=== PATIENT | male | born 1955 | race Caucasian/White ===

== ENCOUNTER 2016-10-03 14:37 | Inpatient (IN) | payer OTHER ==
[~2016-10-03] VITALS: Ht 170.2 cm; Wt 65.4 kg
--- NOTE | 2016-10-03 14:44 | NUR ---
PT PRESENTS TO ER C/O OF SUICIDAL THOUGHTS. PT STATES HE WANTS TO JUMP IN FRONT OF A TRAIN AND KILL HIMSELF. PT STATES HE IS VERY TIRED AND JUST OVER LIVING.
--- NOTE | 2016-10-03 15:30 | NUR ---
JOSE A'S CONTACT NO. [phone] (H), (CELL)
--- NOTE | 2016-10-03 15:39 | NUR ---
LABS DRAWN AND SENT BY THIS MST. BLUE,SST,LAV
[2016-10-03 15:47] LABS: ABSOLUTE BASOPHIL COUNT 0 /CUMM (0.0-0.2); ABSOLUTE EOSINOPHIL COUNT 0 /CUMM (0.0-0.7); ABSOLUTE GRANULOCYTE CT 5.8 /CUMM (1.4-6.5); ABSOLUTE LYMPH COUNT 1.1 /CUMM (1.2-3.4); ABSOLUTE MONOCYTE COUNT 0.6 /CUMM (0.10-0.60); BASOPHIL % 0.5 % (0.0-2.0); EOSINOPHIL % 0.1 % (0-5); GRANULOCYTE % 77.3 % (42.2-75.2); HEMATOCRIT 49.6 % (42-52); MEAN CORPUSCULAR HGB 32.2 PG (27.0-31.0); MEAN CORPUSCULAR HGB CONC 33.2 G/DL (33.0-37.0); MEAN PLATELET VOLUME 7.1 FL (7.4-10.4); PLATELET COUNT 300 /CUMM (130-400); RBC DISTRIBUTION WIDTH 14.7 % (11.5-14.5); RED BLOOD CELL CT 5.11 /CUMM (4.70-6.10); WHITE BLOOD CELL COUNT 7.5 /CUMM (4.8-10.8)
--- NOTE | 2016-10-03 16:00 | NUR ---
PT MOVED TO ROOM 15. CALM AND COOPERATIVE. CONTINUES REPORTING SUICIDAL WITH NO KNOWN PLAN AT THIS TIME. DENIES HOMICIDAL IDEATION. ADMITS TO DRINKING UNKNOWN AMOUNT OF ETOH AT AROUND NOON TODAY. FAMILY AT BED AT THIS TIME.
--- NOTE | 2016-10-03 16:50 | NUR ---
PT SOUND ASLEEP AT THIS TIME WITH REGULAR BREATHING PATTERNS. SITTERS AT THE DOOR.
--- NOTE | 2016-10-03 17:15 | ED PSYCHIATRIC COMPLAINT ---
History of Present Illness General Chief Complaint: ETOH/Drug Related Complaint Stated Complaint: +SI, ALCOHOL DETOX Source: patient, old records Exam Limitations: no limitations Vital Signs & Intake/Output Vital Signs & Intake/Output Vital Signs Date Time Temp Pulse Resp B/P B/P Pulse O2 O2 Flow FiO2 Mean Ox Delivery Rate 10/04 806 96.8 59 18 113/70 10/04 08 96.8 59 18 113/70 99 Room Air 10/04 0606 97.4 53 18 134/71 97 Room Air 10/04 2015 97.2 82 17 115/80 94 Room Air 10/03 1608 97.6 89 21 112/82 97 Room Air 10/03 1443 97.2 86 20 110/78 98 Room Air Allergies Coded Allergies: NO KNOWN ALLERGIES (11/04/11) Triage Note: PT PRESENTS TO ER C/O OF SUICIDAL THOUGHTS. PT STATES HE WANTS TO JUMP IN FRONT OF A TRAIN AND KILL HIMSELF. PT STATES HE IS VERY TIRED AND JUST OVER LIVING. Triage Nurses Notes Reviewed? yes Onset: Abrupt HPI: 61-year-old male that has a history of drinking alcohol that has currently been drinking alcohol heavily comes in for further evaluation of suicidal comments made to his daughter. According to the patient he told his daughter yesterday that he wants to "jump in front of a train". He has chronic pain issues from his back injuries. Denies any drug use but he is on 100 mg of oxycodone daily which she ran out of. Patient lives with his but She is currently in [place] traveling. Denies any other associated symptoms. The called the emergency room reporting that the patient Should not be discharged. He is unsafe to be at home. He is manipulative.he is verbally abusive has tried hurting himself in the past. He has a drug addiction as well as alcohol addiction. [place] He was seen in [place] yesterday and was discharged. The 's name is Yisel in her phone number is [phone]. She wants to be contacted for further information. (LEXI LAURENT,FIFI) Reconcile Medications Diazepam (Valium) 10 MG TABLET 1 TAB PO BID ANXIETY (Reported) Oxycodone HCl 20 MG TABLET 1 TAB PO Q4 HRS NEEDED PRN PAIN (Reported) (ELOINA GARCIA,EVETTE) Past History Travel History Traveled to [place] past 21 day No Medical History Any Pertinent Medical History? see below for history Musculoskeletal: BROKEN BACK Psychiatric: depression Surgical History Surgical History: non-contributory Psychosocial History What is your primary language [place] Citizen Tobacco Use: Current Daily Use Daily Tobacco Use Amount/Type: => 5 Cigarettes daily Family History Hx Contributory? No (FIFI MARIE) Review of Systems Review of Systems Constitutional: Reports: no symptoms. EENTM: Reports: no symptoms. Respiratory: Reports: no symptoms. Cardiovascular: Reports: no symptoms. GI: Reports: no symptoms. Genitourinary: Reports: no symptoms. Musculoskeletal: Reports: no symptoms. Skin: Reports: no symptoms. Neurological/Psychological: Reports: see HPI. Hematologic/Endocrine: Reports: no symptoms. Immunologic/Allergic: Reports: no symptoms. All Other Systems: Reviewed and Negative (FIFI MARIE) Physical Exam Physical Exam General Appearance: well developed/nourished, mild distress Head: atraumatic Eyes: Bilateral: normal appearance. Ears, Nose, Throat: normal ENT inspection, hearing grossly normal Neck: normal inspection Respiratory: no respiratory distress Cardiovascular: regular rate/rhythm Extremities: normal range of motion Neurological/Psychiatric: awake, alert, calm Appearance/Memory/Insight: appropriate appearance Behavoir/Eye Contact/Speech: cooperative Thoughts/Hallucinations: no apparent hallucination Skin: intact, normal color, warm/dry SAD PERSONS Done? unobtained due to conditi (FIFI MARIE) Progress Differential Diagnosis: dementia, drug intoxication, drug overdose, drug withdrawal, electrolyte abnormality, encephalitis, hypoglycemia, hypothyroidism, IC hem/mass/tumor, meningitis, Depression,anxiety, bipolar, Plan of Care: Orders Procedure Date/time Status Regular Diet 10/04 L Active Regular Diet 10/04 B Complete Lab Add-on Test 10/04 1049 Active Pathway - chart 10/04 1047 Active Patient Data - inpatient psych 10/04 1045 Active Admit to inpatient psych 10/04 1045 Active Continuous Observation Monitor 10/04 0742 Active Vital Signs 10/04 UNK Active Nursing Misc 10/04 UNK Active CIWA 10/04 UNK Active Alternative Nursing Therapy 10/04 UNK Active Activity/Ambulation 10/04 UNK Active Continuous Observation Monitor 10/03 1952 Active Intake & Output 10/03 1857 Active ED CRISIS PSYCH CONSULT 10/03 1711 Active TSH REFLEX 10/03 1536 Complete URINE DRUGS OF ABUSE 10/03 1459 Complete ETHANOL 10/03 1459 Complete COMPREHENSIVE METABOLIC PANEL 10/03 1459 Complete CBC WITHOUT DIFFERENTIAL 10/03 1459 Complete Current Medications Sig/Hector Start time Last Medication Dose Stop Time Status Admin Lorazepam 0.5 MG ONCE 10/09 0000 AC (Ativan) 10/09 0001 Lorazepam 0.5 MG Q6H 10/08 0000 AC (Ativan) 10/08 1801 Lorazepam 0.5 MG ONCE ONE 10/07 1800 AC (Ativan) 10/07 1801 Lorazepam 1 MG Q6H 10/07 0000 AC (Ativan) 10/07 1201 Lorazepam 1.5 MG Q12H 10/06 0600 AC (Ativan) 10/06 1801 Lorazepam 1 MG Q12H 10/06 0000 AC (Ativan) 10/06 1201 Lorazepam 1.5 MG Q6 10/05 0600 AC (Ativan) 10/05 1801 Lorazepam 2 MG Q6 10/04 1200 AC 10/04 (Ativan) 10/05 0001 1132 Acetaminophen 650 MG Q6P PRN 10/04 1100 AC (Tylenol) Al Hydroxide/Mg 30 ML Q4-6 PRN PRN 10/04 1100 AC Hydroxide (Maalox Plus) Gabapentin 300 MG Q6P PRN 10/04 1100 AC (Neurontin) Lorazepam 2 MG Q2P PRN 10/04 1100 AC (Ativan) Lorazepam 1 MG Q2P PRN 10/04 1100 AC (Ativan) Magnesium Hydroxide 30 ML AT BEDTIME PRN 10/04 1100 AC (Milk Of Magnesia) Trazodone HCl 50 MG AT BEDTIME NEED.. 10/04 1100 AC (Desyrel) Folic Acid 1 MG DAILY 10/04 1047 AC (Folic Acid) Multivitamins 1 TAB DAILY 10/04 1047 AC (Theragran Vitamins) Thiamine HCl 100 MG DAILY 10/04 1047 AC (Vitamin B1) Hydromorphone HCl 4 MG Q6P PRN 10/03 2045 AC 10/04 (Dilaudid) 0630 Laboratory Tests 10/03/16 1536: Anion Gap 12, Estimated GFR > 60, BUN/Creatinine Ratio 17.5, Glucose 91, Calcium 9.6, Total Bilirubin 0.9, AST 28, ALT 32, Alkaline Phosphatase 63, Total Protein 7.1, Albumin 4.0, Globulin 3.1, Albumin/Globulin Ratio 1.3, TSH &T3 &Free T4 Intrp 0.332, CBC w Diff NO MAN DIFF REQ, RBC 5.11, MCV 97.0 H, MCH 32.2 H, RDW 14.7 H, MPV 7.1 L, Gran % 77.3 H, Lymphocytes % 14.4 L, Monocytes % 7.7, Eosinophils % 0.1, Basophils % 0.5, Absolute Granulocytes 5.8, Absolute Lymphocytes 1.1 L, Absolute Monocytes 0.6, Absolute Eosinophils 0, Absolute Basophils 0, PUBS MCHC 33.2, Serum Alcohol 179.0 10/03/16 1511: Urine Opiates Screen 874.00, Methadone Screen < 40, Barbiturate Screen < 60, Ur Phencyclidine Scrn < 6.00, Amphetamines Screen < 100, U Benzodiazepines Scrn > 800 H, Urine Cocaine Screen < 50, Urine Cannabis Screen < 5.00 7:15 AM PATIENT SIGNED OUT TO ME BY DR HENDERSON. PENDING CRISIS EVALUATION. (EVETTE DUVALL MD) Hand-Off Endorsed To: SERA HENDERSON MD Endorsed Time: 1930 Pending: other (crisis) (FIFI MARIE) Hand-Off Endorsed To: EVETTE DUVALL MD Endorsed Time: 07 Pending: consult (RE-EVAL, ADMISSION) Comments: Patient has been seen and evaluated by the qc lab technician. PEC is being signed. Anticipate admission on a bed is available (SERA HENDERSON MD) Departure Departure Disposition: STILL A PATIENT Condition: Stable Referrals: ILDA GARCIA,SHAHIDA Daily (PCP/Family) Departure Forms: Customer Survey General Discharge Information (FIFI MARIE) Departure Clinical Impression Primary Impression: Suicidal ideation Secondary Impressions: ETOH abuse PA/ASSISTANT PROFESSOR OF SPANISH Co-Sign Statement Statement: ED Attending supervision documentation- [X] I saw and evaluated the patient. I have also reviewed all the pertinent lab results and diagnostic results. I agree with the findings and the plan of care as documented in the PA's/ASSISTANT PROFESSOR OF SPANISH's documentation. [X] I have reviewed the ED Record and agree with the PA's/ASSISTANT PROFESSOR OF SPANISH's documentation. [] Additions or exceptions (if any) to the PAs/ASSISTANT PROFESSOR OF SPANISH's note and plan are summarized below: [] (SANTIAGO GARCIA,SERA Daily) Departure Time of Disposition: 1310 Psych Admission Note Psychiatric Admission: I have seen and evaluated KYLEE VIERA. I have also reviewed all the pertinent lab results and diagnostic results. KYLEE VIERA will be admitted to our inpatient Psychiatric unit for treatment and care. (ELOINA GARCIA,EVETTE)
--- NOTE | 2016-10-03 17:37 | ED PSY CRISIS COLLATERAL NOTE ---
Collateral Note Collateral Note Family/Inform/Ashley Contacts: CELESTE spoke to the patients aunt Miriam Cruz ([phone], ), for collateral information. Miriam states that she was at the ED with someone else and recognized him today. She states prior to today she saw him last Friday and he was not doing well. She states that he has struggled with alcohol abuse for about 15-20 years. She has known him to attempt suicide 2x in the past. She reports that while she was visiting him today, he did tell her that he wanted to kill himself. Miriam states that he is (Yisel) and has an adult daughter ( Tessy). Miriam reports that he does have chronic pain, from back issues, for which he has had surgery. She is concerned about his safety and believes that an inpatient admission would be helpful at this time. CELESTE left a message for his Yisel Gutierrez ([phone], ) and will await a call back.
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
--- NOTE | 2016-10-03 18:56 | NUR ---
PT SOUND ASLEEP WITH REGULAR BRATHING PATTERNS.
--- NOTE | 2016-10-03 19:07 | NUR ---
KYLEE VIERA Nurse Note by: BREANA MARIA I agree with the IRRIGATION FOREMAN findings/evaluation of this patient's condition. Entered by: BREANA MARIA Date: 10/03/16 Time: 1906
--- NOTE | 2016-10-03 19:50 | NUR ---
PT SLEEPING. CRISIS COUNSELOR SPEAKING TO PATIENT'S AT THIS TIME
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
--- NOTE | 2016-10-03 21:38 | NUR ---
PT MEDICATED WITH 4 MG DILAUDID PO FOR CHRONIC PAIN. PT AWARE NEXT DOSE WILL BE AVAILABLE AFTER [address] HENDERSON, PT TO BE ADMITTED TO [facility] TOMORROW AFTER A BED BECOMES AVAILABLE.
--- NOTE | 2016-10-04 01:19 | NUR ---
PT AWAKE AND AMBULATORY TO THE BATHROOM. WATER PROVIDED. BACK TO BED. REMAINS CALM AND COOPERATIVE, SITTER REMAINS IN ATTENDANCE
--- NOTE | 2016-10-04 02:42 | NUR ---
COMFORTABLY SLEEPING. REGULAR BREATHING PATTERNS. SITTER AT THE DOORWAY.
--- NOTE | 2016-10-04 02:55 | NUR ---
KYLEE VIERA Nurse Note by: BREANA MARIA I agree with the SENIOR DB2 SYSTEMS PROGRAMMER findings/evaluation of this patient's condition. Entered by: BREANA MARIA Date: 10/04/16 Time: 025
--- NOTE | 2016-10-04 04:21 | NUR ---
PT CONTINUES TO SLEEP. SITTER REMAINS IN ATTENDANCE
--- NOTE | 2016-10-04 06:16 | NUR ---
AWOKE PATIENT FROM SOUND SLEEP TO OBTAIN VS, PATIENT REPORTING 8/10 BACK PAIN, CHRONIC IN NATURE. PATIENT NOTED W/ PRN DILAUDID ORDER IN EMAR. WILL OBTAIN FOR PATIENT.
--- NOTE | 2016-10-04 06:30 | NUR ---
PATIENT MEDICATED W/ DILAUDID PO PRN (Q6H) PER EMAR. TOLERARED WELL. AFTER ADMINISTRATION, PATIENT STATES "YOU KNOW, I USUALLY TAKE 20MG OF PERCOCET SO THIS DILAUDID ISN'T EVEN TOUCHING ME. IT'S LIKE PUTTING ON A BANDAID."
[2016-10-04 08:07] VITALS: BP 113/70
--- NOTE | 2016-10-04 08:08 | NUR ---
PT LAYING ON STRETCHER, CIWA 0 AT THIS TIME C/O CHRONIC BACK PAIN 01/07. STATES HE NORMALLY TAKES 20MG PO PERCOCET Q4H FOR BACK PAIN, STATES "THE DILAUDID ISNT DOING ANYTHING FOR ME" ALEXIS REMAINS PRESTENT. AWARE
--- NOTE | 2016-10-04 10:04 | NUR ---
PT SLEEPING AT THIS TIME, REG RESP RATE NOTED. SITTER REMAINS PRESENT. WILL CTM
[2016-10-04] MEDS ORDERED: VALIUM10 M1 PO (11:18)
[2016-10-04] MEDS ORDERED: PERCOCET 10-321 EACH PO (11:18)
--- NOTE | 2016-10-04 11:33 | NUR ---
ASSUMED CARE OF THIS PT FROM [facility]. PT MEDICATED WITH ATIVAN 2MG PO PER EMAR. PT REFUSED MULTIVITAMIN, FOLIC ACID AND VITAMIN B1. PT CALM AND COOEPRATIVE. SITTER AT DOOR.
[2016-10-04] MEDS ORDERED: OXYCODONE HCL20 M2 PO (11:34)
--- NOTE | 2016-10-04 13:10 | NUR ---
PT REPORTS HAVING BACK PAIN. PT STATES HE SPOKE WITH TRACY AND THAT HE TAKES PERCOCET 20MG Q4H FOR PAIN AND VALIUM 10MG BID. SITTER AT DOOR.
--- NOTE | 2016-10-04 13:21 | NUR ---
PT MEDICATED WITH DILAUDID 4MG PO FOR BACK PAIN. PT MOVED TO [facility] UNTIL TRANSFER TO [facility] DUE TO ANOTHER PT NEEDING ROOM 15.
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
--- NOTE | 2016-10-04 15:01 | NUR ---
PT'S TRANSPORT DELAYED DUE TO SECURITY ISSUE ON [facility].
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
--- NOTE | 2016-10-04 15:45 | NUR ---
MAKENNA FROM CPS SAID IT IS OK TO SEND PT DOWN AT THIS TIME.
[2016-10-04 16:44] VITALS: BP 111/74
[2016-10-04 16:45] VITALS: BP 111/74
[2016-10-04 20:03] VITALS: BP 121/67
[2016-10-04 20:13] VITALS: BP 121/67
--- NOTE | 2016-10-04 20:14 | NUR ---
PT ADMITTED TO CPS FOR DEPRESSION WITH SI AND ALCOHOL DEPENDENCE REQUIRING DETOX. PT DENIED SI/THOUGHTS OF SELF HARM DURING INTERVIEW. HE ADMITTED TO PAST THOUGHTS AND VERBALIZATIONS OF SI. HOWEVER, HOWEVER, HE DENIED ANY PAST SUICIDE ATTEMPTS DESPITE AUNT'S STATEMENT THAT SHE WAS AWARE OF TWO PAST ATTEMPTS. PT REPORTED HE HAS BECOME INCREASINGLY DEPRESSED AND ANXIOUS SINCE CHRONIC BACK PAIN, POST FAILED FUSION HAS AFFECTED HIS LOF INCLUDING ABILITY TO WORK AND PLAY GOLF WHICH IS HIS PASSION. VSS. NO S&S OF ALCOHOL WITHDRAWAL NOTED/REPORTED. LOW BACK PAIN "7" ON SCALE OF 1-10. DEPRESSION "5" AND ANXIETY "7" ON SCALE OF 1-10 WITH 10 BEING WORST. PT DENIED AH AND VH. REPORTED BM TODAY BUT "HAS BEEN LIKE WATER FOR A WEEK CAUSE I HAVEN'T EATEN ANYTHING. PT SAID HE HAS NOT EATEN "SINCE ." PT REFUSED DINNER ON UNIT. NUTRITION CONSULT ORDERED.
--- NOTE | 2016-10-04 22:25 | History & Physical ---
General Information and HPI MD Statement: I have seen and personally examined KYLEE VIERA and documented this H&P. The patient is a 61 year old M who presented with a patient stated chief complaint of [medical evaluation ]. Source of Information: patient Exam Limitations: no limitations History of Present Illness: Past medical history significant for chronic back pain S/P spinal fusion in 2012 , still pain persist, follows up with Dr. Pink for pain management. He recently followed up for right lower extremity pain and right-sided back pain for which she underwent MRI, there were some changes and he received epidural injection. He also has nerve stimulator in the back. He takes oxycodone and Valium at home for pain. Patient is tearful throughout the interview, secondary to back pain. Other than chronic back pain 14 point ROS negative. Allergies/Medications Allergies: Coded Allergies: NO KNOWN ALLERGIES (11/04/11) Home Med list Diazepam (Valium) 10 MG TABLET 1 TAB PO BID ANXIETY (Reported) Oxycodone HCl 20 MG TABLET 1 TAB PO Q4 HRS NEEDED PRN PAIN (Reported) Compliance With Home Meds: GOOD Past History Travel History Traveled to [place] past 21 day No Medical History Neurological: SCIATICA EENT: NONE Cardiovascular: NONE Respiratory: NONE Gastrointestinal: REPORTS DIARRHEA X 7 DAYS Hepatic: NONE Renal: NONE Musculoskeletal: chronic back pain Psychiatric: anxiety, depression Endocrine: NONE Blood Disorders: NONE Cancer(s): NONE 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 Home Smoking Status: Current Everyday Smoker ETOH Use: heavy use Illicit Drug Use: denies illicit drug use Functional Ability ADLs Independent: dressing, eating, toileting, bathing. 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 EENTM: Reports: no symptoms. Cardiovascular: Reports: no symptoms. Respiratory: Reports: no symptoms. GI: Reports: no symptoms. Genitourinary: Reports: no symptoms. Musculoskeletal: Reports: back pain. Skin: Reports: no symptoms. Hematologic/Endocrine: Reports: no symptoms. All Other Systems: Reviewed and Negative Exam & Diagnostic Data Last 24 Hrs of Vital Signs/I&O Vital Signs Date Time Temp Pulse Resp B/P B/P Pulse O2 O2 Flow FiO2 Mean Ox Delivery Rate 10/04 2012 97.7 68 16 121/67 10/04 2002 97.7 68 121/67 10/04 1645 98.0 72 111/74 10/04 1644 98.0 72 111/74 10/04 1429 98.2 82 16 122/65 95 Room Air 10/04 0807 96.8 59 18 113/70 10/04 0806 96.8 59 18 113/70 99 Room Air 10/04 0606 97.4 53 18 134/71 97 Room Air Physical Exam General Appearance Alert, Oriented X3, Cooperative Skin No Rashes, No Breakdown HEENT Atraumatic, PERRLA, EOMI, Mucous Membr. moist/pink Neck Supple, No JVD, No thryomegaly, +2 Carotid Pulse wo Bruit Lymphatic Cervical nl Cardiovascular Regular Rate, Normal S1, Normal S2, No Murmurs Lungs Clear to Auscultation, Normal Air Movement Abdomen Normal Bowel Sounds, Soft, No Tenderness, No Hepatospenomegaly, No Masses Neurological Exam Findings: Normal Gait, Normal Speech, Strength at 5/5 X4 Ext, Normal Tone, Sensation Intact, Cranial Nerves 3-12 NL, Reflexes 2+ Cranial Nerves II through XII: Cranial nerves III-XII intact Extremities No Clubbing, No Cyanosis, No Edema, Normal Pulses Vascular Normal Pulses, Pulses Symmetrical Last 24 Hrs of Labs/Brady: Laboratory Tests 10/03 10/03 1536 1511 Chemistry Sodium (137 - 145 mmol/L) 140 Potassium (3.5 - 5.1 mmol/L) 3.9 Chloride (98 - 107 mmol/L) 104 Carbon Dioxide (22 - 30 mmol/L) 23 Anion Gap (5 - 16) 12 BUN (9 - 20 mg/dL) 14 Creatinine (0.7 - 1.2 mg/dL) 0.8 Estimated GFR (>60 ml/min) > 60 BUN/Creatinine Ratio (7 - 25 %) 17.5 Glucose (65 - 99 mg/dL) 91 Calcium (8.4 - 10.2 mg/dL) 9.6 Total Bilirubin (0.2 - 1.3 mg/dL) 0.9 AST (17 - 59 U/L) 28 ALT (21 - 72 U/L) 32 Alkaline Phosphatase (< 127 U/L) 63 Total Protein (6.3 - 8.2 g/dL) 7.1 Albumin (3.5 - 5.0 g/dL) 4.0 Globulin (1.9 - 4.2 gm/dL) 3.1 Albumin/Globulin Ratio (1.1 - 2.2 %) 1.3 TSH &T3 &Free T4 Intrp (0.27 - 4.20 uIU/mL) 0.332 Hematology CBC w Diff NO MAN DIFF REQ WBC (4.8 - 10.8 /CUMM) 7.5 RBC (4.70 - 6.10 /CUMM) 5.11 Hgb (14.0 - 18.0 G/DL) 16.4 Hct (42 - 52 %) 49.6 MCV (80.0 - 94.0 FL) 97.0 H MCH (27.0 - 31.0 PG) 32.2 H RDW (11.5 - 14.5 %) 14.7 H Plt Count (130 - 400 /CUMM) 300 MPV (7.4 - 10.4 FL) 7.1 L Gran % (42.2 - 75.2 %) 77.3 H Lymphocytes % (20.5 - 51.1 %) 14.4 L Monocytes % (1.7 - 9.3 %) 7.7 Eosinophils % (0 - 5 %) 0.1 Basophils % (0.0 - 2.0 %) 0.5 Absolute Granulocytes (1.4 - 6.5 /CUMM) 5.8 Absolute Lymphocytes (1.2 - 3.4 /CUMM) 1.1 L Absolute Monocytes (0.10 - 0.60 /CUMM) 0.6 Absolute Eosinophils (0.0 - 0.7 /CUMM) 0 Absolute Basophils (0.0 - 0.2 /CUMM) 0 PUBS MCHC (33.0 - 37.0 G/DL) 33.2 Toxicology Urine Opiates Screen (>2000 NG/ML) 874.00 Methadone Screen (>300 NG/ML) < 40 Barbiturate Screen (>200 NG/ML) < 60 Ur Phencyclidine Scrn (>25 NG/ML) < 6.00 Amphetamines Screen (>1000 NG/ML) < 100 U Benzodiazepines Scrn (>200 NG/ML) > 800 H Urine Cocaine Screen (>300 NG/ML) < 50 Urine Cannabis Screen (>50 NG/ML) < 5.00 Serum Alcohol (<10 MG/DL) 179.0 Assessment/Plan Assessment: # Alcoholism: agree with psychiatrist # Depression SI and overdose: Agree with psychiatrist # Chronic back pain: Need to reconfirm his pain medications from pain clinic, patient wants to restart his home medication As Ranked By This Provider Problem List: 1. ETOH abuse 2. Suicidal ideation 3. Back pain Miscellaneous Miscellaneous Documentation Attending Case Discussed With: LUCAS GARCIA,JUANPABLO Primary Care Physician: SHAHIDA GONSALES MD Patient sees these Specialists Dr. Florez Level of Patient Care: MIRANDA Simon MD Review Statement Attending Statement Attending MD Statement: examined this patient, reviewed images
[2016-10-05] VITALS (13 sets, daily range): BP systolic 100–131; BP diastolic 62–79
--- NOTE | 2016-10-05 04:54 | Admission Certification ---
Admission Certification Certification Statement - As attending physician, I certify that at the time of - admission, based on clinical presentation, severity of - symptoms, need for further diagnostic testing and - therapeutic interventions, and risk of adverse outcomes - without in-hospital treatment, in my clinical assessment, - this patient requires an acute hospital stay for a minimum - of two nights or longer. I have also considered psychsocial - factors such as support system, advanced age, financial - issues, cognitive issues, and failed out-patient treatments, - past re-admission history, safety of patient, and lack of - compliance as applicable. Specific rationale supporting this admission is: suicidal ideation
--- NOTE | 2016-10-05 06:52 | NUR ---
PATIENT SLEPT 1/2 OF MORE OF NIGHT; IS ORIENTED; VITAL SIGNS WNL, NO DETOX SYMPTOMS; ATIVAN TAPER BEING ADMINISTERED WITHOUT DIFFICULTY, STILL RUMINATING ON PAIN MEDICATION ISSUE.
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
--- NOTE | 2016-10-05 14:29 | NUR ---
SPENDING MOST OF THE DAY IN BED. COMES OUT WHEN HIS PAIN MEDS ARE DUE. MOOD IS STABLE DENIED THOUGHTS OF SELF HARM WHEN ASKED.
--- NOTE | 2016-10-05 18:31 | NUR ---
PT HAS BEEN WITHDRAWN AND CONSTRICTED ON THE UNIT. HE COMMUNICATES WITH STAFF AND PEERS IN SMALL INCREMENTS BUT REPORTS FEELING ANXIOUS AT TIMES AND WILL RETREAT TO HIS ROOM. PT HAS REFUSED TO EAT MEALS AND OFTEN MAKES COMMENTS SUCH "I HAVENT EATEN SINCE LAST FRIDAY, I CAN KEEP GOING, YOU WATCH". PT ALSO DISPLAYS AN IRRITABLE AFFECT IN REGARDS TO THE RELATIONSHIP WITH HIS . PT HAS DENIED ANY THOUGHTS OF SI WHEN ASKED BY STAFF.
--- NOTE | 2016-10-05 22:23 | NUR ---
PT REPORTED PASSIVE SI AT 2100. THIS MHW TRIED TO ASSESS THE ROOT OF THE EMOTION, TO PROVIDE SUPPORT AND UNDERSTANDING BUT HE DID NOT WANT TO SPEAK FURTHER. PT STATED DURING VITALS "HOW LOW DOES MY BP NEED TO GET UNTIL I CROAK... I WOULD LOVE IT IF I JUST NEVER WOKE UP". SUPPLY REQUIREMENTS OFFICER WAS INFORMED.
[2016-10-06] VITALS (10 sets, daily range): BP systolic 93–132; BP diastolic 60–82
--- NOTE | 2016-10-06 05:57 | NUR ---
PT ON THE PERIPHERY ON EVENINGS. PT IN BED EARLY. PT SLEPT. PATIENT'S CALLED FROM [facility]. SHE STATED THAT THE PATIENT IS SUPPOSED TO GO TO THE [facility] HOME FOR A PERIOD AFTER DISCHARGE.
--- NOTE | 2016-10-06 11:17 | NUR ---
PT HAS SPENT MOST OF THE SHIFT IN BED, COMING OUT FOR VITALS, MEALS AND MEDS. PT REPORTED SI THOUGHTS AT 0800 VITALS BUT JUST PASSIVE THOGUHTS, NO PLAN. PT MOOD IS STABLE WITH A FLAT AFFECT. PT IS NOT ATTENDING GROUPS. PT IS COMPLIANT AND COOPERATIVE WITH STAFF WHEN ASKED.
--- NOTE | 2016-10-06 17:24 | DISCHARGE SUMMARY REPORT-PSYCH ---
Hospital Course Course Allergies: Coded Allergies: NO KNOWN ALLERGIES (11/04/11) Discharge HBIPS - Tobacco Use Treatment Offered - EtOH/Drug Use D/O Treatment Offered Metabolic Screening - Screen if on a Neuroleptic Medication - Metabolic screening should include: - Blood Pressure, BMI, Glucose or Hgb A1c, & a - Lipid profile from within the past 365 days.
--- NOTE | 2016-10-06 17:28 | CP SOUTH PROGRESS NOTE PSYCH ---
Psych (Inpt) Progress Note Progress Note Progress Note: SUBJECTIVE: Pt requested nicotine replacement today (declinied on admission), ordered. Pt tearful during interview, stated "I keep asking my [] uncle to take me, but they wont do it" (pointing to ceiling)...I made a mess of everything." Pt spoke minimally with who called x2, upset that she is spending money traveling now. Pt with passive SI, denied HI/AVH/SIB. Feels mild withdrawal, states the ativan helps. Worked with pt to have basal/bolus pain coverage throughout 24 h for better control of breakthough pain, discussed r/b/se, pt in agreement with plan. Pt sates he hasnt been able to eat/sleep well. Received senior sales operations analyst for TENS unit, stated that is helping somewhat. OBJECTIVE: Per nursing, pt went to bed early, slept throught night. Adherent with meds and staff instructions, in behavioral control, on periphery of milieu. Per RN, pt said want him to do to [facility] after dc. MEDS: Current Medications Sig/Hector Start time Last Medication Dose Stop Time Status Admin Acetaminophen 650 MG Q6P PRN 10/04 1100 AC (Tylenol) Al Hydroxide/Mg 30 ML Q4-6 PRN PRN 10/04 1100 AC Hydroxide (Maalox Plus) Folic Acid 1 MG DAILY 10/04 1047 AC 10/06 (Folic Acid) 0930 Gabapentin 300 MG BID 10/05 2200 AC 10/06 (Neurontin) 0930 Lorazepam 0.5 MG ONCE 10/09 0000 AC (Ativan) 10/09 0001 Lorazepam 0.5 MG Q6H 10/08 0000 AC (Ativan) 10/08 1801 Lorazepam 0.5 MG ONCE ONE 10/07 1800 AC (Ativan) 10/07 1801 Lorazepam 1 MG Q6H 10/07 0000 AC (Ativan) 10/07 1201 Lorazepam 1.5 MG Q12H 10/06 0600 AC 10/06 (Ativan) 10/06 1801 0604 Lorazepam 2 MG Q2P PRN 10/04 1100 AC (Ativan) Lorazepam 1 MG Q2P PRN 10/04 1100 AC (Ativan) Magnesium Hydroxide 30 ML AT BEDTIME PRN 10/04 1100 AC (Milk Of Magnesia) Multivitamins 1 TAB DAILY 10/04 1047 AC 10/06 (Theragran Vitamins) 0930 Nicotine 21 MG DAILY 10/06 1726 AC (Nicoderm) Oxycodone HCl 20 MG 1500 10/07 1500 AC (Roxicodone) Oxycodone HCl 20 MG 0600 10/07 0600 AC (Roxicodone) Oxycodone HCl 20 MG Q12H 10/06 2100 AC (OxyCONTIN) Thiamine HCl 100 MG DAILY 10/04 1047 AC 10/06 (Vitamin B1) 0930 Trazodone HCl 50 MG AT BEDTIME NEED.. 10/04 1100 AC 10/05 (Desyrel) 2157 VITALS: Vital Signs Date Time Temp Pulse Resp B/P B/P Pulse O2 O2 Flow FiO2 Mean Ox Delivery Rate 10/06 1530 83 128/66 10/06 1513 83 128/66 10/06 1225 89 93/60 10/06 1218 89 93/60 10/06 0833 78 121/81 10/06 0831 96.6 78 121/81 10/06 0615 51 18 124/68 10/05 205 98.4 88 122/70 10/06 2055 98.4 88 122/70 10/05 1801 98.6 83 121/65 LABS: no labs in last 24 h MSE: GEN: Alert, tearful, slow-moving, stooped, fair eye contact, disheveled, in moderate distress. SPEECH: moderate rate, low volume, fluent MOTOR: no tics, tremor, stereotypy or abnormal movements, no asteriksis MOOD: "Monica really messed everything up...its hopeless!" AFFECT: sad, tearful, congruent, constircted, mildly labile (crying, irritable) TP: logical, linear, goal-directed TC: denies SI/HI/AVH,SIB, no apparent delusions, paranoia, grandiosity, obsessions, ruminations COG: impaired memory, attention, concentration (needed to repeat questions, medications frequently) J/I: fair/fair A&P: 61 yo MWM with unspecified depressive d/o, alcohol use disorder, severe, and possible opiate use disorder in chronic pain treatment, presenting voluntarily with daughter for SI and EtOH detox. At this time, pt with continued passive SI , withouth HI/AVH/SIB, adequately undergoing EtOH detox, adherent with meds. Today, pt continued to have breakthough pain after switching to long-acting opiate regimen +gabapentin and recharging his TENS; will add short acting to bridge. While pt is on high doses of opiates, he is opiate tolerant and current doses (80 mg oxy/day) is less than home regimen (100mg or more) by >20%. Pt continued to be quite depressed. Treatment Plan: -maintain safety, q15 min checks, fall risk -vs q4h, CIWA, ativan prn EtOH withdrawal -adding short acting opiate for breakthough pain -pain mgmt with TENS (senior sales operations analyst at nursing station) -reg diet, encourage hydration -cont plan, dispo per primary team
--- NOTE | 2016-10-06 17:54 | NUR ---
WHILE DISPENING MEDICATIONS TO PATIENT i ASKED IF HE HAD EATEN ANYTHING TODAY AND HE SAID NO . WENT ON TO SAY WHAT WOULD IT MATTER IF HE STOPPED EATING. AFTER SOME MORE DISCUSSION REGARDING HIS CIRCUMSTANCES HE BEGAN TO CRY. iN THE END HE AGREED TO LET US TRY TO COME UP WITH A PLAN TO HELP HIM WHILE KEEPING HIM SAFE. hE PROMISED TO EAT TOMMOROW AND I TOLD HIM I WOULD HOLD HIM TO HIS PROMISE.
--- NOTE | 2016-10-06 18:33 | NUR ---
PT HAS BEEN IN HIS BED FOR THE MAJORITY OF THE SHIFT. HE HAS REPORTED PASSIVE THOUGHTS OF SI, SAYING THAT HE WOULD BE HAPPY IF HE NEVER WOKE UP. HE HAS DENIED ANY PLAN TO ACT ON THOUGHTS WHILE ON THE UNIT. HE REMAINS TO HAVE A FLAT, CONSTRICTED AFFECT. PT REPORTS THAT HE HAS BEEN IRRITATED WITH HIS , AND THAT SHE IS IN [place] "SPENDING ALL THE MONEY". PT HAS BEEN COMPLIANT WITH UNIT RULES.
--- NOTE | 2016-10-06 23:24 | NUR ---
PT MADE PASSIVE SUICIDAL STATEMENT WHEN ASKED ABOUT HIS HYGIENE. "IHAVEN'T EATEN OR SHOWERED IN 8 DAYS", TRYING TO KILL MYSELF. MAYBE TOMORROW HE STATED. COMPLIANT WITH MEDS. NO CIWA SCORING NOTED.
[2016-10-07] VITALS (8 sets, daily range): BP systolic 103–134; BP diastolic 69–83
--- NOTE | 2016-10-07 04:55 | NUR ---
SLEPT WELL. BEGINNING OF THE NIGHT, NO CIWA SCORING AT THAT TIME. AT 0235, SCORED ON CIWA WHEN AWAKE WITH IN 100. MEDICATED ORDERED ATIVAN 1MG PO WIITH GOOD EFFECT.
--- NOTE | 2016-10-07 13:12 | NUR ---
PT IS COMPLIANT AND COOPERATIVE. MOOD IS STABLE WITH A CONSTRICTED AFFECT. PT DENIES SI AT THIS TIME, C/O CHRONIC BACK PAIN. NO S/S OF DETOX NOTED OR REPORTED, NO SCORING ON CIWA. PT HAS BEEN ISOLATIVE AND WITHDRAWN, SLEEPING ON AND OFF. PT HAS SOME INTERACTION WIHT PEERS AND STAFF WHEN OOB. PT HAS ATTENDED ONE GROUP. VITALS ARE STABLE, APPETITE IS GOOD.
--- NOTE | 2016-10-07 13:27 | CP SOUTH PROGRESS NOTE PSYCH ---
Psych (Inpt) Progress Note Progress Note Include the following elements, when applicable: Involvement in the active treatment of the patient with behavioral observations of the patient and the patient's response to the treatment. Review of the ongoing treatment process in the context of the treatment plan. Indication of how multi-disciplinary staff members are carrying out the treatment plan. Plans for future interventions and recommendations for revision of the treatment plan. Liaison with other physicians/providers. Progress Note: I discussed this patient's progress to date, current mental status, treatment process in the context of the treatment plan, and discharge planning with staff/ team in the daily morning inpatient team meeting. I also met with the patient myself in individual session. Current Medications Sig/Hector Start time Last Medication Dose Route Stop Time Status Admin Acetaminophen 650 MG Q6P PRN 10/04 1100 AC PO Al Hydroxide/Mg 30 ML Q4-6 PRN PRN 10/04 1100 AC Hydroxide PO Folic Acid 1 MG DAILY 10/04 1047 AC 10/07 PO 0837 Gabapentin 300 MG BID 10/05 2200 AC 10/07 PO 0837 Lorazepam 0.5 MG ONCE 10/09 0000 AC PO 10/09 0001 Lorazepam 0.5 MG Q6H 10/08 0000 AC PO 10/08 1801 Lorazepam 0.5 MG ONCE ONE 10/07 1800 AC PO 10/07 1801 Lorazepam 1 MG Q6H 10/07 0000 DC 10/07 PO 10/07 1201 1214 Lorazepam 1.5 MG Q12H 10/06 0600 DC 10/06 PO 10/06 1801 1751 Lorazepam 2 MG Q2P PRN 10/04 1100 AC PO Lorazepam 1 MG Q2P PRN 10/04 1100 AC 10/07 PO 0344 Magnesium Hydroxide 30 ML AT BEDTIME PRN 10/04 1100 AC PO Multivitamins 1 TAB DAILY 10/04 1047 AC 10/07 PO 0837 Nicotine 21 MG DAILY 10/06 1726 AC 10/07 TOP 0837 Oxycodone HCl 20 MG 1500 10/07 1500 DC PO Oxycodone HCl 20 MG 1500 10/07 1500 AC PO Oxycodone HCl 20 MG 0600 10/07 0600 DC PO Oxycodone HCl 20 MG 0600 10/07 0600 AC 10/07 PO 0607 Oxycodone HCl 20 MG Q12H 10/06 2100 AC 10/07 PO 0836 Oxycodone HCl 10 MG ONCE ONE 10/06 1745 DC 10/06 PO 10/06 1746 1751 Oxycodone HCl 20 MG Q12 10/05 1256 DC 10/06 PO 0929 Thiamine HCl 100 MG DAILY 10/04 1047 AC 10/07 PO 0837 Trazodone HCl 50 MG AT BEDTIME NEED.. 10/04 1100 AC 10/05 PO 2157 Vital Signs Date Time Temp Pulse Resp B/P B/P Pulse O2 O2 Flow FiO2 Mean Ox Delivery Rate 10/07 1247 83 134/71 10/07 1244 83 134/71 10/07 0816 97.2 92 105/82 10/07 0814 97.2 92 105/82 10/06 2053 98.5 91 100/81 10/06 2031 98.5 91 100/81 10/06 1803 59 132/82 10/06 1530 83 128/66 10/06 1513 83 128/66 A: Chart, progress notes, labs, vital signs and medication list reviewed. Vital signs within normal limits. No scoring on CIWA x last 24 hours. No new lab results today. Patient is a 61-year-old , employed, male with a history of unspecified depression, alcohol use disorder, possible opiate use disorder who is in chronic pain management with Dr. Florez. He presented to [facility] ED on 10/03/16, brought in by his daughter, with thoughts of "jumping in front of a train" and in need of alcohol detox secondary to the nonrenewal of his pain medications. Patient reports a hx of 2 prior CPS hospitalizations in 2006 and multiple alcohol detoxes including [facility] in 2011, [facility] and some involvement. Patient with 2 prior suicide attempts many years ago but did not wish to discuss the details of these. Not presently in outpatient psychiatric tx. Per CT BEEF BREAKER: Oxycodone HCL 20mg #140/25 days; last filled on 09/09/16 Diazepam 10mg #60/30 days; last filled on 09/09/16 Patient denied being on other psychotropic medications. Patient presents today alert, oriented x 3. Makes fair eye contact. Minimally guarded. Affect sad, constricted, tearful at times. Depressed mood. Speech soft- spoken. Concentration fair. He reports current stressors involving finances, his , and chronic pain issues. States he no longer finds pleasure in activities he once liked, including golf. He offers no complaints. Rates anxiety a 4/10 (10 being the worst). Rates depression an 8/10 (10 being the worst). Reports 5/10 pain. Describes feeling hopeless and helpless due to current stressors. States he doesn't feel his marriage will work out. Reports passive SI, elly plans or intent. Denies HI, AH and VH. No evidence of paranoia or delusional/illogical thought content. Reports motivation to stop drinking. States he had been drinking up to a couple pints daily prior to admission. Reports tolerating ativan taper well overall. Counseling provided on resuming AA/contact with sponsor. Patient seems agreeable. Reports sleeping poorly d/t noisy roommate. Reports his appetite is returning, he ate breakfast this morning. Thought process linear. Cognition grossly intact. Education provided on Zoloft, reviewed the risk/benefit/se profiles with patient. Per 2006 CPS discharge summary, patient's mood and presentation improved on this medication. Patient was agreeable to retrial. Informed him that Zoloft will start at 50mg daily for depression and anxiety. He verbalized understanding of med education. P: -monitor for safety, mood, SI. -continue CIWA protocol Q4H w/awake for etoh w/d. Continue Ativan taper as ordered. -continue current pain management w/ TENS unit as prescribed. -start Zoloft 50mg daily for anxiety/depression. -obtain collateral from family. -refer to a dual IOP once symptoms stabilize.
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
--- NOTE | 2016-10-07 18:15 | NUR ---
PT IS CALM, COOPERATIVE WITH STAFF AND PEERS, AND COMPLAINT WITH UNIT RULES. BOTH IN AND OUT OF MILIEU, INTERACTING TO AN EXTENT WITH OTHERS, SLIGHTLY WITHDRAWN. MOOD IS STABLE, AFFECT APPEARS EUTHYMIC TO FULL RANGE, COMMUNICATION IS ORGANIZED AND APPEARS NORMAL IN ALL RESPECTS, AND APPETITE IS NORMAL. PT DENIES SI AT THIS TIME.
[2016-10-08] VITALS (7 sets, daily range): BP systolic 100–126; BP diastolic 53–74
--- NOTE | 2016-10-08 07:26 | NUR ---
PT ON PERIPHERY ON EVENINGS. PT IN BED EARLY. PT SLEPT. PT PAIN FOCUSED IN AM. PT ENCOURAGED TO SHOWER.
--- NOTE | 2016-10-08 08:31 | IP INCIDENTAL NOTE PSYCH ---
Incidental Note Notation: CELESTE obtained to speak with pain specialist. I spoke to Dr. Bryant Florez, at 8: 20AM today. Informed Dr. Florez of circumstances surrounding patient's current inpatient hospitalization, ie., SI, alcohol detox, having run out of narcotic meds, etc. Dr. Florez informed me that this is not the first time the patient has run out of opiates prior to medication renewal. States he has made attempts to further manage patient's pain by raising dosage of narcotic medication, however patient continued to c/o no relief and used up prescriptions early. Dr. Florez is requesting that patient start tapering off of opiate pain medication while inpatient. Dr. Florez is agreeable to seeing the patient back in his office post- discharge to complete opiate taper and address pain management with alternative pain medications. Informed Dr. Florez that [facility] will be in contact with his office to arrange a f/u appointment prior to patient discharging, if he is not discharged directly to an inpatient residential rehab.
--- NOTE | 2016-10-08 10:28 | CP SOUTH PROGRESS NOTE PSYCH ---
Psych (Inpt) Progress Note Progress Note Include the following elements, when applicable: Involvement in the active treatment of the patient with behavioral observations of the patient and the patient's response to the treatment. Review of the ongoing treatment process in the context of the treatment plan. Indication of how multi-disciplinary staff members are carrying out the treatment plan. Plans for future interventions and recommendations for revision of the treatment plan. Liaison with other physicians/providers. Progress Note: I discussed this patient's progress to date, current mental status, treatment process in the context of the treatment plan, and discharge planning with staff/ team in the daily morning inpatient team meeting. I also met with the patient myself in individual session. Current Medications Sig/Hector Start time Last Medication Dose Route Stop Time Status Admin Acetaminophen 650 MG Q6P PRN 10/04 1100 AC PO Al Hydroxide/Mg 30 ML Q4-6 PRN PRN 10/04 1100 AC Hydroxide PO Folic Acid 1 MG DAILY 10/04 1047 AC 10/08 PO 0913 Gabapentin 300 MG BID 10/05 2200 AC 10/08 PO 0913 Lorazepam 0.5 MG ONCE 10/09 0000 AC PO 10/09 0001 Lorazepam 0.5 MG Q6H 10/08 0000 AC 10/08 PO 10/08 1801 0631 Lorazepam 0.5 MG ONCE ONE 10/07 1800 DC 10/07 PO 10/07 1801 1826 Lorazepam 1 MG Q6H 10/07 0000 DC 10/07 PO 10/07 1201 1214 Lorazepam 2 MG Q2P PRN 10/04 1100 AC PO Lorazepam 1 MG Q2P PRN 10/04 1100 AC 10/07 PO 0344 Magnesium Hydroxide 30 ML AT BEDTIME PRN 10/04 1100 AC PO Multivitamins 1 TAB DAILY 10/04 1047 AC 10/08 PO 0913 Nicotine 21 MG DAILY 10/06 1726 AC 10/08 TOP 0913 Oxycodone HCl 20 MG 10/09 2100 UNVr PO Oxycodone HCl 10 MG 0910/09 0900 UNVr PO Oxycodone HCl 10 MG 2100 10/08 2100 UNVr PO 10/08 2101 Oxycodone HCl 20 MG 1500 10/07 1500 DC PO Oxycodone HCl 20 MG 1500 / 1500 AC 10/07 PO 1425 Oxycodone HCl 20 MG 0600 10/07 0600 AC 10/08 PO 0631 Oxycodone HCl 20 MG Q12H 10/06 2100 DC 10/08 PO 0915 Sertraline HCl 50 MG 0800 10/07 1400 AC 10/08 PO 912 Thiamine HCl 100 MG DAILY 10/04 1047 AC 10/08 PO 912 Trazodone HCl 50 MG .STK-MED ONE 10/07 2126 DC PO 10/08 2127 Trazodone HCl 50 MG AT BEDTIME NEED.. 10/04 1100 AC 10/07 PO 2125 Vital Signs Date Time Temp Pulse Resp B/P B/P Pulse O2 O2 Flow FiO2 Mean Ox Delivery Rate 10/09 827 97.8 62 116/61 10/08 806 97.8 62 116/61 10/07 1957 97.1 71 103/69 10/07 1950 97.1 71 103/69 10/07 1549 87 129/83 10/07 1538 87 129/83 10/07 1247 83 134/71 10/07 1244 83 134/71 A: Chart, progress notes, labs, vital signs and medication list reviewed. Vital signs within normal limits. No scoring on CIWA x last 24 hours. No new lab results today. Patient seen at 10:15AM. He reports sleeping poorly last night due to his roommate snoring loudly. States his roommate is always present in room, and that he is hardly able to nap during the day. Reports feeling tired. Reports PRN Trazodone and ear plugs have provided minimal relief. Affect constricted with occasional range. Describes mood as "down." Eye contact appropriate. Speech soft , normal in rate and tone. Rates his pain a 5/10 (10 being the worst). Rates anxiety and depression both a 6/10 (10 being the worst). States he has been avoiding his 's phone calls. Reports feeling ambivalent about how he will approach their relationship post-discharge. Admits to feeling hopeless and helpless surrounding a future with his . He alludes to possibly filing for divorce, "I just want half of my money, my things so that I can go away for a bit." Does not state where he would go. He denies suicidal ideation. Denies that previous statement was in reference to suicide. Gave protective factor of his 29 -year-old daughter. Denies feeling worthless or guilty. Denies homicidal ideation, auditory and visual hallucinations. There is no evidence of paranoia or delusional thought content. Thought process linear. Thought content depressed /hopeless. Energy: "tired." Appetite: "eating a little." Cognition grossly intact. Patient reports tolerating intitiation of Zoloft well, denies SEs. Informed patient of discussion had with Dr. Florez this morning (see incidental note for more information). Patient did not resist Dr. Florez's recommendation to begin opiate taper. He agreed to taper Oxycodone controlled-release first. Informed patient we will reduce by 10mg today. He already received 20mg Oxycodone CR QAM, will order x 1 dose of 10mg Oxycodone CR at 9PM, tonight. P: -Continue monitoring on unit for safety, mood and SI. -Continue CIWA monitoring and Ativan taper as ordere for etoh w/d. -Trazodone increased from 50mg QHS PRN to 100mg QHS PRN for insomnia. -Begin Oxycodone CR taper. Patient will receive one dose of 10mg QPM, tonight. Then, patient will start 10mg QAM and 20mg QHS. Will reassess pain tomorrow before further tapering. -Increase Gabapentin from 300mg BID to 600mg TID for neuropathic pain. -Continue Zoloft 50mg daily depression/anxiety. -Patient will f/u with Dr. Florez, pain management, post-discharge. -Will explore IOP options given that patient is currently in pain management; will also explore detox/rehab options if patient is agreeable.
--- NOTE | 2016-10-08 13:05 | NUR ---
PT IS COMPLIANT AND COOPERATIVE. MOOD IS STABLE WITH A FLAT AND EUTHYMUIC AFFECT. PT DENIES SI AT THIS TIME, NO COMPLAINTS OFFERED. NO S/S OF DETOX NOTED OR RPEORTED. PT HAS BEEN ISOLATIVE IN ROOM- SLEEPING THE MAJORITY OF THE DAY. PT OUT OF BED FOR MEALS AND VITALS. PT HAS MINIMAL INTERACTION WITH OTHERS. PT IS REFUSING GROUPS. VITALS ARE STABLE, APPETITE IS GOOD.
--- NOTE | 2016-10-08 17:33 | SOCIAL WORKER PROG NOTE PSYCH ---
Social Work Progress Note Progress Note Momo was in bed resting most of the day. He reported not eating breakfast and only eating a small slice peice of pie for lunch. Reports that he just doesn't feel like eating due to pain. He reports sleep disturbance and didn't sleep last night. Mostly due to disruptions due to his roommate. He reports that the pain isn't as bad when he isn't moving, but he can't live his life laying in bed not doing anything. When asked how he would rate his depression today he rates it at a 4 (1-10, 10 being most severe), Anxiety 5-6 (same scale). He is most anxious about what is happening with his and if she is coming home from [place] soon. He is worried that he doesn't have keys to get in the house if we discharge him. Talked about Della Jones APRN's discussion with Dr. Florez and how Dr. Florez is looking to taper the pain meds and find alternative treatment options. Momo reports that he can't go off pain medication and if the medication is lowered he feel it will be a set up for increased alcohol use. Explored some tx possibilities for aftercare. He didn't seem interested in rehab, stating he isn't going to be accepted on pain meds and can't go off. I talked about IOP probably not accepting him either on pain medication. May need to follow up with outpatient. He seemed to think he will just stay with Dr. Florez. I let him know that I left messages with his and was waiting to speak with her. Asked if there was any SI today? He said no, but stated "I wouldn't be upset if I didn't wake up." When asked if a miracle happened overnight and one thing changed, what would it be? He said " I would have more money." He identifies financial stressors as a huge concern. He reports owing 40,000 to the IRS and 15,000 to the state for not paying taxes. He said the only money he has is in his 's name. He said there is a few thousand dollars. I was able to connect with Yisel Gutierrez (). She reports that she will be coming home from [place] tomorrow. She would like to come in for a family meeting on Thursday. We set it up for 1pm. She is concerned about Momo's safety when he drinks. She stated he gets very depressed and suicidal. She is willing to help monitor his meds and stated she is there for him and doesn't want him to feel alone. She wanted me to pass that message along to him. I told Som that I reached his and we set up a meeting. He seems very ambivalent about their relationship, stating he would probably leave her if the money wasn't in her name. He doesn't think that she is good for him and regrets marrying her 5 years ago.
--- NOTE | 2016-10-08 17:49 | NUR ---
PT IS CALM, COOPERATIVE WITH STAFF AND PEERS, AND COMPLIANT WITH UNIT RULES. BOTH IN AND OUT OF MILIEU, MOSTLY STAYING IN PERIPHERY WITH LIMITED INTERACTION WITH OTHERS. MOOD IS STABLE, AFFECT APPEARS EUTHYMIC TO FULL RANGE, COMMUNICATION IS ORGANIZED AND APPEARS NORMAL IN ALL RESPECTS, AND APPETITE IS NORMAL. PT DENIES SI AT THIS TIME.
[2016-10-09] VITALS (8 sets, daily range): BP systolic 92–98; BP diastolic 61–70
--- NOTE | 2016-10-09 04:20 | NUR ---
SLEPT WELL OVERNIGHT. NO CIWA SCORING NOTED OVERNIGHT.
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
--- NOTE | 2016-10-09 13:18 | CP SOUTH PROGRESS NOTE PSYCH ---
Psych (Inpt) Progress Note Progress Note I reviewed the patients electronic record, I received a verbal report from nurse Stephanie Patients sleep record indicated pt. slept well, 0 CIWA scoring, needs to attend to his ADLs and laundry BP 92/61, Pulse 58, Temp 98.4, RR 16/min I interviewed patient No new labs past 24 hours Background: 61 year-old White man who was admitted through ED after presenting to ED with daughter for SI and alcohol detox in the context of non-renewal of pain meds. Chief Complaint was "Im hopeless" Diagnoses of record: Unspecified depressive disorder Alcohol Use Disorder, severe r/o Opiate use disorder Chronic back pain with implanted stimulator Mental Status Update: Patient reported roommate snoring loudly. He reported feeling tired, mood "down. " Eye contact appropriate. Speech soft, normal in rate and tone. some anxiety, occasional feelings of hopelessness He denies suicidal ideation. Denies homicidal ideation, denied auditory and visual hallucinations. There is no evidence of paranoia or delusional thought content. Thought process linear. Cognition grossly intact. PLAN: After going back and forth regarding switching from Oxycontin to immediate release Oxycodone because his insurance does not cover Oxycontin, he finally said lets just leave it as it is Therefore, No change in medications (psychotropic or otherwise medications
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
--- NOTE | 2016-10-09 17:59 | NUR ---
PT IS CALM, COOPERATIVE WITH STAFF AND PEERS, AND COMPLIANT WITH UNIT RULES. BOTH IN AND OUT OF MILIEU, PT IS OFTEN IN PERIPHERY WITH LIMITED INTERACTION WITH OTHERS. CAN BE SLIGHTLY IRRITABLE AT TIMES. MOOD IS STABLE, AFFECT APPEARS EUTHYMIC TO FULL RANGE, COMMUNICATION IS ORGANIZED AND APPEARS NORMAL IN ALL RESPECTS, AND APPETITE IS NORMAL. PT DENIES SI AT THIS TIME.
[2016-10-10 07:57] VITALS: BP 105/66
[2016-10-10 08:22] VITALS: BP 105/66
[2016-10-10 12:07] VITALS: BP 96/67
[2016-10-10 12:20] VITALS: BP 96/67
--- NOTE | 2016-10-10 13:11 | CP SOUTH PROGRESS NOTE PSYCH ---
Psych (Inpt) Progress Note Progress Note Include the following elements, when applicable: Involvement in the active treatment of the patient with behavioral observations of the patient and the patient's response to the treatment. Review of the ongoing treatment process in the context of the treatment plan. Indication of how multi-disciplinary staff members are carrying out the treatment plan. Plans for future interventions and recommendations for revision of the treatment plan. Liaison with other physicians/providers. Progress Note: I discussed this patient's progress to date, current mental status, treatment process in the context of the treatment plan, and discharge planning with staff/ team in the daily morning inpatient team meeting. I also met with the patient myself in individual session. Current Medications Sig/Hector Start time Last Medication Dose Route Stop Time Status Admin Acetaminophen 650 MG Q6P PRN 10/04 1100 AC PO Al Hydroxide/Mg 30 ML Q4-6 PRN PRN 10/04 1100 AC Hydroxide PO Folic Acid 1 MG DAILY 10/04 1047 AC 10/10 PO 0827 Gabapentin 600 MG 0800,1400,10/08 1400 AC 10/10 PO 1259 Lorazepam 2 MG Q2P PRN 10/04 1100 AC PO Lorazepam 1 MG Q2P PRN 10/04 1100 AC 10/07 PO 0344 Magnesium Hydroxide 30 ML AT BEDTIME PRN 10/04 1100 AC PO Multivitamins 1 TAB DAILY 10/04 1047 AC 10/10 PO 0827 Nicotine 21 MG DAILY 10/06 1726 AC 10/10 TOP 0827 Oxycodone HCl 10 MG 2100 10/10 2100 UNVr PO Oxycodone HCl 20 MG 2100 10/09 2100 DC 10/09 PO 2136 Oxycodone HCl 10 MG 0900 10/09 0900 AC 10/10 PO 0827 Oxycodone HCl 20 MG 1500 10/07 1500 AC 10/09 PO 1456 Oxycodone HCl 20 MG 0600 10/07 0600 AC 10/10 PO 0541 Sertraline HCl 50 MG 0800 10/07 1400 AC 10/10 PO 0827 Thiamine HCl 100 MG DAILY 10/04 1047 AC 10/10 PO 0827 Trazodone HCl 100 MG AT BEDTIME NEED.. 10/08 1030 AC 10/09 PO 2223 Vital Signs Date Time Temp Pulse Resp B/P B/P Pulse O2 O2 Flow FiO2 Mean Ox Delivery Rate 10/10 1220 68 96/67 10/10 1207 68 9610/10 0822 68 10510/10 0757 97.8 68 105/10/09 1955 99.1 64 16 98/70 10/09 1942 99.1 64 98/10/09 1604 73 10/09 1600 73 A: Chart, progress notes, labs, vital signs and medication list reviewed. No new lab results today. Vital signs within normal limits. A family meeting was held with the patient, his (Yisel), Velia Rivas LCSW, and Devika. Patient's treatment progress to date, medication regimen, level of safety and discharge planning were reviewed and discussed. Yisel, the patient's , reports that she continues to be concerned for the patient's safety due to his risk of relapse and depressed mood. States he just started eating on the unit and making his bed, which she feels is slight progress. Yisel states she is not willing to take him back into their home; states that Dr. Florez ('s pain specialist) recommended the patient discharge to the [facility] in [place], [place] for rehabilitation and respite. In terms of outpatient psychiatric follow-up tx, the patient was agreeable to following up with [facility] for medication management and individual therapy. We informed Yisel that more information would need to be obtained from Dr. Florez and the [facility], in order to adequately assess if this is a feasible plan from the hospital. Also, discussed substance abuse rehab options, which neither the patient or his were in favor of. Today, the patient denied passive and active suicidal ideation, plans and intent. Denied homicidal ideation, auditory and visual hallucinations. Thought process linear, goal-directed. No evidence of paranoia or nery delusions. Reported tolerating medications well, denied SEs. States that today he has no pain, because he has not been forced to do any laborous activity while on unit. Reported his appetite is improving. Sleep is "not bad." Energy level is "getting better." Please see Velia Rivas LCSW's note, for additional information regarding family meeting. Velia Rivas LCSW, and I spoke to Dr. Florez regarding the patient following up at the [facility]. Dr. Florez felt strongly that the patient should not be discharged from inpatient psychiatry yet; he feels he is at risk for relapse and that he would best be served at the [facility] for rehabilitation. He stated that his office is currently working on paperwork (?referral) to send to the [facility]. Apparently, the patient's already submitted a deposit for him to transition there. We informed Dr. Florez that we would need to gather more information from the [facility] before we act further on this. Please see Velia Rivas LCSW's note, for additional information regarding phone conversation. Dr. Florez also recommended that the patient be tapered off of oral opiates during this hospitalization. Informed Dr. Florez that this could be done on an outpatient basis. He recommended that Oxycodone be decreased by 10mg every day and that outpatient Valium NOT be restarted. Informed Dr. Florez that during the remainder of the patient's inpatient stay, I will follow these taper recommendations. I further informed Dr. Florez, that it is likely that the patient will not be fully tapered off of opiates by discharge. P: -continue monitoring for safety, mood and suicidal ideation. -decrease Oxycodone Cr 20mg to 10mg at 9PM. Continue Oxycontin as ordered. -continue Zoloft 50mg QAM for depression/anxiety. -continue Gabapentin as ordered. -clarify dispo plan.
--- NOTE | 2016-10-10 14:05 | NUR ---
Pt adequately tending to ADLs, had a family meeting to which patiently vaguely commented to the affect that it went fair, reports mild improvement in pain, "because I'm not doin nothing" and reports missing golf and not being able to play d/t back injury, "I used to be the best in the state". This RN commented that pt appeared to look well and pt commented, "yeah I'm finally eating" and smiled.
[2016-10-10 15:53] VITALS: BP 105/78
--- NOTE | 2016-10-10 16:52 | SOCIAL WORKER PROG NOTE PSYCH ---
Social Work Progress Note Progress Note Momo's came in for the family meeting at 1:15 today. Mrs. Gutierrez expressed her concern and frustration over Som not eating enough, losing weight, and his problems related to alcohol and pain medication. Mrs. Gutierrez was adamant about him not coming directly home and that she wants him to go the [facility] in [place], which is a nursing facility. Questioned the nursing component and why this was needed? She reiterated that it would help manage his pain meds, nutrition, and it would essentially be a respite until he gets better. She sounded extremely frustrated with the her and it was clear during the meeting it was taking a toll on her emotionally. She presented as slightly aggressive in her tone and posture during the meeting. She went on to say that Som's friend Kit Webber is some kind of "big shot" with the [facility] and he is getting him in. She stated she gave Kit a check to pay for him to be there and she doesn't care if it is covered by insurance. I told her that there is usually a state approval process for getting people into nursing homes. I asked if she knew if this was being done? She had said that Dr. Florez is doing the paperwork and making the referral. I asked Som what he thought of this plan? He said he was fine with it. He was quiet alot of the meeting and didn't offer much, his over took the conversation. We told her that we will call Dr. Florez to discuss this plan and if it can happen by Friday. Explained that her is not actively suicidal/ homicidal or gravely disabled and he needs to discharge soon. She is asking that he go Friday if all can be set up with the [facility]. Della Jones APRN and I called Dr. Florez. Dr. Florez said he agreed with Mrs. Gutierrez that he would be better off if he didn't come home yet. He said they have been in contact with the [facility] and were reluctant to have him come, but they are going to accept him for a brief time based on their pushing the issue. I asked if they required an ascend? He said his office was not doing that and we would need to do it. I told him we are not doing an ascend and that is not a process that is easy to do from a psych unit. I don't feel it is medically necessary. Dr. Florez stated he would speak to Mrs. Gutierrez.
--- NOTE | 2016-10-10 17:41 | NUR ---
PT IS CALM, COOPERATIVE WITH STAFF AND PEERS, AND COMPLIANT WITH UNIT RULES. OFTEN IN MILIEU, INTERACTING WELL WITH OTHERS. MOOD IS STABLE, AFFECT APPEARS EUTHYMIC TO FULL RANGE, COMMUNICATION IS ORGANIZED AND APPEARS NORMAL IN ALL RESPECTS, AND APPETITE IS NORMAL. PT DENIES SI AT THIS TIME.
[2016-10-10 19:46] VITALS: BP 112/57
--- NOTE | 2016-10-11 07:20 | NUR ---
PT ON PERIPHERY ON EVENINGS. PT IN BED EARLY. PT SLEPT POORLY, NOT HELPED BY THE LOUD SNORING OF HIS ROOMMATE. PT ALLUDED TO SPENDING TODAY IN BED.
[2016-10-11 08:11] VITALS: BP 134/87
[2016-10-11 12:17] VITALS: BP 138/75
--- NOTE | 2016-10-11 13:07 | NUR ---
PT HAS BEEN ISOLATING IN HIS ROOM ALL MORNING. HE DID NOT ATTEND GROUPS. HE IS COMPLIANT WITH HIS MED REGIME. WHEN ASKED PT DENIED SUICIDAL THOUGHTS AT THIS TIME. HE STATED HE WAS IN BED BECAUSE HE SLEPT POORLY LAST NIGHT. PT REMINDED THAT IF HE STAYS IN BED ALL DAY HE WILL NOT SLEEP TONIGHT TOO.PT REPORTS POOR APPETITE TODAY..FLUIDS ENCOURAGED
--- NOTE | 2016-10-11 15:01 | CP SOUTH PROGRESS NOTE PSYCH ---
Psych (Inpt) Progress Note Progress Note Include the following elements, when applicable: Involvement in the active treatment of the patient with behavioral observations of the patient and the patient's response to the treatment. Review of the ongoing treatment process in the context of the treatment plan. Indication of how multi-disciplinary staff members are carrying out the treatment plan. Plans for future interventions and recommendations for revision of the treatment plan. Liaison with other physicians/providers. Progress Note: Current Medications Sig/Hector Start time Last Medication Dose Route Stop Time Status Admin Acetaminophen 650 MG Q6P PRN 10/04 1100 AC PO Al Hydroxide/Mg 30 ML Q4-6 PRN PRN 10/04 1100 AC Hydroxide PO Benzocaine/Menthol 1 GRZEGORZ Q2P PRN 10/11 1500 AC PO Gabapentin 600 MG 0800,1400,10/08 1400 DC 10/11 PO 0900 Hydroxyzine HCl 25 MG Q4 HRS NEEDED PRN 10/11 1500 UNVr PO Magnesium Hydroxide 30 ML AT BEDTIME PRN 10/04 1100 AC PO Multivitamins 1 TAB DAILY 10/04 1047 AC 10/11 PO 0900 Nicotine 21 MG DAILY 10/06 1726 AC 10/11 TOP 0900 Oxycodone HCl 10 MG 2100 10/10 2100 AC 10/10 PO 2142 Oxycodone HCl 10 MG 0900 10/09 0900 AC 10/11 PO 0902 Oxycodone HCl 20 MG 1500 10/07 1500 AC 10/10 PO 1504 Oxycodone HCl 20 MG 0600 / 0600 AC 10/11 PO 0701 Sertraline HCl 50 MG 0800 10/07 1400 AC 10/11 PO 0900 Trazodone HCl 100 MG AT BEDTIME 10/11 2200 UNVr PO Trazodone HCl 100 MG AT BEDTIME NEED.. 10/08 1030 DC 10/10 PO 2143 Vital Signs Date Time Temp Pulse Resp B/P B/P Pulse O2 O2 Flow FiO2 Mean Ox Delivery Rate 10/11 1217 61 138/75 10/11 0811 98.2 96 134/87 10/10 1946 98.0 70 112/57 10/10 1553 71 105/78 A: Patient seen at 2:50PM. He reports sleeping poorly last night due to the noise level on unitStates he took PRN Trazodone which had little effect. C/o sore throat. Presents calm on encounter. Reports he had felt anxious prior to our encounter due to receiving news that the [facility] does not have a bed for him (see FUR REPAIR INSPECTOR note for further information). States he had time to process this information, is in favor of returning home with f/u at [facility] for medication management, outpatient pain management with Dr. Florez, and individual therapy with present outpatient therapist. Rates anxiety a 6-7/10 (10 being the worst). Reports that Gabapentin "makes me more anxious." Requested Gabapentin be discontinued. Resistent to increasing dose in attempt to maximize efficacy. Reviewe r/b/se profiles of Atarax for anxiety, patient agreeable to low dose PRN trial for anxiety relief. Rates sadness/depression a 4/10 (10 being the worst). Despite telling FUR REPAIR INSPECTOR that he felt like he was regressing today, he admits to eating more regularly during meal times, is showering independently, making his bed. Patient reports he has declined participation in groups saying "it's not my thing." Describes his energy level as "better here." Reports pain is a 4/10 today. Denies suicidal and homicidal ideation, plans and intent. Denies homicidal ideation, auditory and visual hallucinations. Thought process linear. Cognition grossly intact. Patient reports tolerating medications other than Gabapentin well. Informed patient Gabapentin will be discontinued. Atarax will be started for anxiety PRN. Also informed patient that I will make Trazodone 100mg a scheduled HS med and add a PRN of 50mg Trazodone for insomnia. Patient agreeable to medication plan. Patient aware that he will continue tapering down on Oxycodone. Informed patient of taper schedule (see in Plan below). Patient agreeable. P: -continue monitoring for safety, meal intake, SI and mood. -change PRN Trazodone 100mg to scheduled at HS. Add Trazodone 50mg PRN for insomnia. -d/c Gabapentin 600mg TID. Start Atarax 25mg Q4H prn for anxiety. -continue tapering Oxycodone by 10mg/day per recommendation of Dr. Florez, outpatient pain specialist. Patient will receive 10mg of Cr tomorrow at 2100 and Roxicodone 20mg BID (0600/1500). Friday, patient to receive Roxicodone 20mg BID only (0600/1500). -arrange after care f/u. Likely d/c Friday.
--- NOTE | 2016-10-11 15:06 | SOCIAL WORKER PROG NOTE PSYCH ---
Social Work Progress Note Progress Note Clinician met with pt and discussed the request for a signed Release of Information to talk with the [facility] of [place]. Pt called his Yisel and asked his 's permission to sign this Release of Information. Clinician spoke to Yisel, who gave him permission to sign the Release form, Yisel then asked this Clinician to speak for Ann Marie in admissions and to refrain from providing any details about the case. Clinician contacted the [facility] and spoke to Ann Marie in Admissions. Ann Marie's feedback They do not have a bed for the pt. Also Ann Marie shared that she did speak to the pt's doctor and told the doctor that the facility does not have the services that the doctor is requesting. Face to face with the pt, he was tearful, reports he is feeling more anxious today because he only got 2 hours of sleep last night. "I feel like I regressed since ". Pt was requesting medications for the anxiety because he feels the Neurotin is not working for him. Clinician left a message for Prachi at [facility] for clinical review [phone].
[2016-10-11 15:47] VITALS: BP 116/80
--- NOTE | 2016-10-11 16:19 | SOCIAL WORKER PROG NOTE PSYCH ---
Social Work Progress Note Progress Note Clinician spoke to Yisel at Dr. Rodrigues's request. Yisel was told that the pt will be discharge home on Friday. Yisel reponded The president of the [facility] secured a bed for him "what I'm I going to do". Yisel took the number for the [facility] and said she will be calling Ann Marie in admissions now.
--- NOTE | 2016-10-11 16:41 | SOCIAL WORKER PROG NOTE PSYCH ---
Social Work Progress Note Progress Note Clinician spoke to Yisel, "I will pick him up on Friday" She attempted to contact Ann Marie at the [facility]; instead she left a message because she did not get a call back from Ann Marie. Yisel is worried that if the pt does not have pain medications he will drink. She mentioned "he can simply walk across the way from where we live to the bar" and "he will drink". "I already told Dr. Florez that this will happen. "If it happens I will bring him back to [place]" she stated.
[2016-10-11 19:59] VITALS: BP 104/53
--- NOTE | 2016-10-11 20:29 | NUR ---
PT IS VISIBLE ON UNIT, QUIETLY WATCHING TV IN LOUNGE. MINIMAL INTERACTION WITH PEERS, COOPEATIVE AND COMPLIANT WITH STAFF. NO COMPLAINTS OR SI REPORTED. PT HAS A STABLE MOOD AND FULL RANGE AFFECT.
--- NOTE | 2016-10-12 05:28 | NUR ---
PATIENT WAS BRIEFLY AWAKE X1, OTHERWISE APPEARED TO SLEEP ALL NIGHT.
[2016-10-12 08:57] VITALS: BP 104/79
--- NOTE | 2016-10-12 11:31 | CP SOUTH PROGRESS NOTE PSYCH ---
Psych (Inpt) Progress Note Progress Note Include the following elements, when applicable: Involvement in the active treatment of the patient with behavioral observations of the patient and the patient's response to the treatment. Review of the ongoing treatment process in the context of the treatment plan. Indication of how multi-disciplinary staff members are carrying out the treatment plan. Plans for future interventions and recommendations for revision of the treatment plan. Liaison with other physicians/providers. Progress Note: Pt notes that feeling overwhelmed by anxiety. Had previously been on valium and wanted this to be restarted. This provider declined to do. Notes passive SI , "if I keep feeling this way." Denies active SI or AVHs. Current Medications Sig/Hector Start time Last Medication Dose Route Stop Time Status Admin Acetaminophen 650 MG Q6P PRN 10/04 1100 AC PO Al Hydroxide/Mg 30 ML Q4-6 PRN PRN 10/04 1100 AC Hydroxide PO Benzocaine/Menthol 1 GRZEGORZ Q2P PRN 10/11 1500 AC 10/11 PO 1848 Cyanocobalamin 1,000 MCG DAILY 10/12 1126 AC PO Gabapentin 100 MG Q8 PRN 10/12 1130 AC PO Gabapentin 600 MG 0800,1400,10/08 1400 DC 10/11 PO 0900 Hydroxyzine HCl 25 MG Q4 HRS NEEDED PRN 10/11 1500 AC 10/12 PO 0849 Magnesium Hydroxide 30 ML AT BEDTIME PRN 10/04 1100 AC PO Melatonin 3 MG AT BEDTIME 10/12 2200 AC PO Multivitamins 1 TAB DAILY 10/04 1047 AC 10/12 PO 0844 Nicotine 21 MG DAILY 10/06 1726 AC 10/12 TOP 0844 Oxycodone HCl 10 MG 2100 10/10 2100 AC 10/11 PO 10/13 2300 2119 Oxycodone HCl 10 MG 0910/09 0900 DC 10/11 PO 0902 Oxycodone HCl 20 MG 1500 10/07 1500 AC 10/11 PO 1532 Oxycodone HCl 20 MG 0600 10/07 0600 AC 10/12 PO 0701 Sertraline HCl 50 MG 0800 10/07 1400 AC 10/12 PO 0844 Trazodone HCl 100 MG AT BEDTIME 10/11 2200 AC 10/11 PO 2119 Trazodone HCl 50 MG AT BEDTIME NEED.. 10/11 1730 AC PO Trazodone HCl 100 MG AT BEDTIME NEED.. 10/08 1030 DC 10/10 PO 2143 Vital Signs Date Time Temp Pulse Resp B/P B/P Pulse O2 O2 Flow FiO2 Mean Ox Delivery Rate 10/13 0757 98.2 92 104/79 10/11 1959 98.4 71 104/53 10/11 1547 66 116/80 10/11 1217 61 138/75 No new labs MSE Appears as stated age. Cooperative behavior, good, appropriate eye contact. Nl speech rate and prosody. No psychomotor retardation or agitation. Mood anxious Affect anxious, irritable, depressed, constricted, appropriate, non-liable. Linear and goal directed thought process. Denies SI or HI. Does not appear to be responding to internal stimuli. Denies AVHs, paranoia, or delusions. I/J: limited A/P: Pt with MDD, AUD, and chronic pain with improved mood though now prominent anxiety sx. Unclear if function of prolonged alcohol wd which may take weeks to resolve. - Start melatonin - Start B12 for low level - Start gabapentin 100mg q8PRN for anxiety - Otherwise continue current medications
[2016-10-12 12:45] VITALS: BP 100/75
--- NOTE | 2016-10-12 13:41 | NUR ---
Momo was compliant with unit norms. He stated the Atarax was helpful with his anxiety. After he received it his affect was brighter. He received 2 doses as of this writing. He kept to himself most of the shift. Denies SH/HI/SI. No groups attended this shift.
[2016-10-12 16:00] VITALS: BP 111/62
--- NOTE | 2016-10-12 17:46 | NUR ---
PT IS CALM, COOPERATIVE WITH STAFF AND PEERS, AND COMPLIANT WITH UNIT RULES. OFTEN IN MILE[place], INTERACTING WITH OTHERS. MOOD IS STABLE, AFFECT APPEARS EUTHYMIC TO FULL RANGE, COMMUNICATION IS ORGANIZED AND APPEARS NORMAL IN ALL RESPECTS, AND APPETITE IS NORMAL. PT DENIES SI AT THIS TIME.
[2016-10-12 19:53] VITALS: BP 100/59
--- NOTE | 2016-10-13 07:04 | NUR ---
PT AWAKE X1, GIVEN PRN TRAZODONE AT 0101, OTHERWISE SLEPT.
[2016-10-13 07:52] VITALS: BP 105/52
--- NOTE | 2016-10-13 11:25 | CP SOUTH PROGRESS NOTE PSYCH ---
Psych (Inpt) Progress Note Progress Note Include the following elements, when applicable: Involvement in the active treatment of the patient with behavioral observations of the patient and the patient's response to the treatment. Review of the ongoing treatment process in the context of the treatment plan. Indication of how multi-disciplinary staff members are carrying out the treatment plan. Plans for future interventions and recommendations for revision of the treatment plan. Liaison with other physicians/providers. Progress Note: Pt notes continued anxiety. Perseverative around wanting BDZ for anxiety. Psychoed done on the role of therapy and coping skills on anxiety as pt fixated on having medication resolve all anxiety. Overall though notes, "a little better today." Notes that family wants him to go to [facility] but he does not want to go because "they dont give you any pain meds there." Education done on OIHA and how this could be possibly making pain worse for him. Pt denies SI or HI. Denies AVHs. Current Medications Sig/Hector Start time Last Medication Dose Route Stop Time Status Admin Acetaminophen 650 MG Q6P PRN 10/04 1100 AC PO Al Hydroxide/Mg 30 ML Q4-6 PRN PRN 10/04 1100 AC Hydroxide PO Benzocaine/Menthol 1 GRZEGORZ Q2P PRN 10/11 1500 AC 10/11 PO 1848 Clonidine 0.05 MG Q6P PRN 10/13 1100 AC PO Cyanocobalamin 1,000 MCG DAILY 10/12 1126 AC 10/13 PO 0843 Gabapentin 100 MG Q8 PRN 10/12 1130 AC PO Hydroxyzine HCl 50 MG Q6PRN PRN 10/13 1100 AC PO Hydroxyzine HCl 25 MG Q4 HRS NEEDED PRN 10/11 1500 DC 10/13 PO 0845 Magnesium Hydroxide 30 ML AT BEDTIME PRN 10/04 1100 AC PO Melatonin 3 MG AT BEDTIME 10/12 2200 AC 10/12 PO 2139 Multivitamins 1 TAB DAILY 10/04 1047 AC 10/13 PO 0843 Nicotine 21 MG DAILY 10/06 1726 AC 10/13 TOP 0843 Oxycodone HCl 10 MG 2100 10/10 2100 AC 10/12 PO 10/13 2300 2139 Oxycodone HCl 20 MG 1500 10/07 1500 AC 10/12 PO 1556 Oxycodone HCl 20 MG 0600 10/07 0600 AC 10/13 PO 0614 Sertraline HCl 50 MG 0800 10/07 1400 AC 10/13 PO 0843 Trazodone HCl 100 MG AT BEDTIME 10/11 2200 AC 10/12 PO 2139 Trazodone HCl 50 MG AT BEDTIME NEED.. 10/11 1730 AC 10/13 PO 0101 Vital Signs Date Time Temp Pulse Resp B/P B/P Pulse O2 O2 Flow FiO2 Mean Ox Delivery Rate 10/13 0752 97.5 66 105/52 10/12 1953 97.7 55 100/59 10/12 1600 77 111/62 10/12 1245 75 100/75 No new labs MSE Appears as stated age. Cooperative behavior, good, appropriate eye contact. Nl speech rate and prosody. No psychomotor retardation or agitation. Mood a little better Affect not anxious, very irritable, depressed, constricted, appropriate, non-liable. Linear and goal directed thought process. Denies SI or HI. Does not appear to be responding to internal stimuli. Denies AVHs, paranoia, or delusions. I/J: limited A/P: Pt with MDD, AUD, and chronic pain with improved mood though now prominent anxiety sx. Unclear if function of prolonged wd which may take weeks to resolve. - Cont melatonin - Cont B12 for low level - gabapentin 100mg q8PRN for anxiety, d/c as pt feels wont work - Increase atarax PRN to 50mg - Start clonidine 0.05mg PRN for opiate wd, monitoring BPs, hold for <100 - Otherwise continue current medications
[2016-10-13 12:08] VITALS: BP 126/66
--- NOTE | 2016-10-13 14:40 | NUR ---
Patient is A&O X 3, compliant and cooperative with medication and group therapies/ activities. Patient mood is stable with Euthymic affect, behavior is withdrawn/isolative and he is coherent/organized with his communication process.Vital sign is stable and within the acceptable range,endores some level of chronic back, denies thought of self-harm and to someone else.
[2016-10-13 16:16] VITALS: BP 114/70
--- NOTE | 2016-10-13 17:58 | NUR ---
PT IS CALM, COOPERATIVE WITH STAFF AND PEERS, AND COMPLIANT WITH UNIT RULES. OFTEN IN MILIEU, INTERACTING WITH OTHERS TO AN EXTENT. MOOD IS STABLE, AFFECT APPEARS EUTHYMIC TO FULL RANGE, COMMUNICATION IS ORGANIZED AND APPEARS NORMAL IN ALL RESPECTS, AND APPETITE IS NORMAL. PT DENIES SI AT THIS TIME.
[2016-10-13 20:07] VITALS: BP 120/82
[2016-10-14 08:04] VITALS: BP 126/75
[2016-10-14 12:04] VITALS: BP 109/75
--- NOTE | 2016-10-14 12:55 | NUR ---
PT IS A/OX3; MOOD APPEARS STABLE; FULL RANGE AFFECT; SEEN OUT IN COMMUNITY INTERACTING WITH PEERS AND STAFF OCCASIONALLY; PT DENIES SI/HI/REYNOLDS AT THIS TIME; DESCRIBES APPETITE "IMPROVING" AND HAS BEEN EATING; PT HAS BEEN MEDICATION AND RULE COMPLIANT; PT GOAL AND FUTURE ORIENTED.
--- NOTE | 2016-10-14 13:57 | CP SOUTH PROGRESS NOTE PSYCH ---
Psych (Inpt) Progress Note Progress Note Include the following elements, when applicable: Involvement in the active treatment of the patient with behavioral observations of the patient and the patient's response to the treatment. Review of the ongoing treatment process in the context of the treatment plan. Indication of how multi-disciplinary staff members are carrying out the treatment plan. Plans for future interventions and recommendations for revision of the treatment plan. Liaison with other physicians/providers. Progress Note: I discussed this patient's progress to date, current mental status, treatment process in the context of the treatment plan, and discharge planning with staff/ team in the daily morning inpatient team meeting. I also met with the patient myself in individual session. Current Medications Sig/Hector Start time Last Medication Dose Route Stop Time Status Admin Acetaminophen 650 MG .STK-MED ONE 10/13 1950 DC PO 10/14 1951 Acetaminophen 650 MG Q6P PRN 10/04 1100 AC 10/14 PO 0449 Al Hydroxide/Mg 30 ML Q4-6 PRN PRN 10/04 1100 AC Hydroxide PO Benzocaine/Menthol 1 GRZEGORZ Q2P PRN 10/11 1500 AC 10/11 PO 1848 Clonidine 0.05 MG Q6P PRN 10/13 1100 AC PO Cyanocobalamin 1,000 MCG DAILY 10/12 1126 AC 10/14 PO 0827 Gabapentin 100 MG Q8 PRN 10/12 1130 AC PO Hydroxyzine HCl 50 MG Q6PRN PRN 10/13 1100 AC 10/14 PO 1316 Magnesium Hydroxide 30 ML AT BEDTIME PRN 10/04 1100 AC PO Melatonin 5 MG AT BEDTIME 10/14 2200 AC PO Melatonin 3 MG AT BEDTIME 10/12 2200 DC 10/13 PO 2117 Multivitamins 1 TAB DAILY 10/04 1047 AC 10/14 PO 0827 Nicotine 21 MG DAILY 10/06 1726 AC 10/14 TOP 0827 Oxycodone HCl 20 MG 10/15 0600 AC PO Oxycodone HCl 10 MG 2100 10/10 2100 DC 10/13 PO 10/13 2300 2117 Oxycodone HCl 20 MG 1500 10/07 1500 AC 10/14 PO 1511 Oxycodone HCl 20 MG 0610/07 0600 DC 10/14 PO 0626 Sertraline HCl 100 MG 10/15 0800 CAN PO Sertraline HCl 75 MG 10/15 0800 AC PO Sertraline HCl 25 MG ONE TIME ONE 10/14 1615 DC PO 10/14 1616 Sertraline HCl 50 MG ONE TIME ONE 10/14 1600 CAN PO 10/14 1601 Sertraline HCl 50 MG 0800 10/07 1400 DC 10/14 PO 0827 Trazodone HCl 100 MG AT BEDTIME 10/11 2200 AC 10/13 PO 2117 Trazodone HCl 50 MG AT BEDTIME NEED.. 10/11 1730 AC 10/13 PO 0101 Vital Signs Date Time Temp Pulse Resp B/P B/P Pulse O2 O2 Flow FiO2 Mean Ox Delivery Rate 10/14 1204 63 109/75 10/15 803 97.6 72 126/75 10/13 2006 97.9 82 120/82 A: Chart, progress notes, labs, vital signs and medication list reviewed. Vital signs within normal limits. No new labs results today. Patient seen at 1:35PM. He presents to office appearing anxious, states he feels like he "regressed" since admission here. Describes having panic attacks over the weekend, with no insight into triggers. Reports decreased sleep; states this has nothing to do with current roommate. Initially seemed ambivalent about what kind of aftercare tx he'd like to pursue from hospital. States his appetite is low, but admits to eating 50% of both his breakfast and lunch today. C/o back pain , rates pain a 4-5/10 (10 being the worst). Reports feeling unsafe to discharge today; that if he were to return home (today) he would relapse on alcohol and take pills. When asked if he would take pills intentionally in a suicide attempt, he stated "I don't know." Patient states he has 1 BB gun at home, denied access to other guns. States he has no desire to use BB gun to harm himself. Rates both depression and anxiety a 6-7/10 (10 being the worst). + passive SI with thoughts to take pills if he returns home today w/ unclear intent. Later during session, reports a desire to go to rehab from here. He signed a CELESTE for [facility] (See MARKETING GRAPHICS SPECIALIST note for additional information). He denies homicidal ideation, auditory and visual hallucinations. No evidence of paranoia or delusional thought content. Thought process linear, goal-directed. Affect mostly constricted, odd at times. Mood "anxious, depressed." Eye contact appropriate. Speech normal in rate, tone and volume. Insight/judgement fair. Energy level "ok." He offered no further complaints. Patient in favor of increasing Zoloft from 50mg to 75mg daily to further target depression/anxiety. Will receive additional 25mg x 1 today then receive 75mg tomorrow. Patient also agreeable to increasing Melatonin from 3mg QHS to 5mg QHS for insomnia. Encouraged to utilize prn Trazodone 50mg for insomnia. P: -monitor for safety, mood, SI. -increase Zoloft to 75mg daily for anxiety/depression. -increase Melatonin to 5mg QHS for insomnia. -continue Trazodone 100mg QHS + 50mg PRN for insomnia. -continue PRN Atarax and Gabapentin for break-through anxiety. -instruct to remove BB gun from home. -d/c tomorrow 10:30AM to who will bring patient to rehab in [place]. -continue current pain management regimen.
--- NOTE | 2016-10-14 14:03 | SOCIAL WORKER PROG NOTE PSYCH ---
Social Work Progress Note Progress Note Momo's left a message this morning stating she knew Som couldn't go to the [facility] and it would be irresponsible to allow him home at this time with the progress he is making and she will not allow him to return home. She asked for him to sign a release to the [facility]. Della Jones APRN and I met with Momo together. Momo said he didn't have a good weekend. Reported increased anxiety with some panic attacks. Reported not sleeping and not eating much. Although stated he ate a half of a muffin and half a sandwich today. He reports that his thoughts are jumbled and his head feels like "scrambled eggs." I told him that as of last week we had talked about discharge for today. He seemed surprised and stated that he couldn't go home today. He then said he definetely needs to go to a program from here. He reported that if he were to return home he would end of drinking and taking pills. When asked if it would be a purposeful suicide attempt? He couldn't answer clearly. He reports not being able to think clearly right now due to pain. He finds it hard to answer his pain on a scale of 1-10 10 being worst, because it changes through the day. He reported right now to be a 4-5. He was asked about guns at home. He said he has a BB gun, but no other guns. Shared that when his friend asked what he could do for him? He said "Do you have a gun?" Asked him what his thoughts were about going to [facility]? He said he was ok with that plan. I called the rehab and was able to find out that his had spoken with a Loc Anderson there. The staff member informed me that she will have him call me back. Loc called and shared that things are in place for him to come to their facility in [place]. He said he got alot of background information from Som's Yisel. He reported that she is willing to transport him there, it's about a [address] Insurance has been verified. They will continue to taper his pain medication there. The program is based on what insurance will cover, but on average 22 days. Called Yisel Barr's . She will pickle maker Momo at 10:30am tomorrow and bring him to [place]. Momo was on his when i went to tell him the information. She was in the process of telling him the information.
[2016-10-14 16:25] VITALS: BP 133/88
--- NOTE | 2016-10-14 17:52 | NUR ---
PT IS CALM, COOPERATIVE WITH STAFF AND PEERS, AND COMPLIANT WITH UNIT RULES. OFTEN IN [place], INTERACTING TO AN EXTENT WITH OTHERS. MOOD IS STABLE, AFFECT APPEARS EUTHYMIC TO FULL RANGE, COMMUNICATION IS ORGANIZED AND APPEARS NORMAL IN ALL RESPECTS, AND APPETITE IS NORMAL. PT DENIES SI AT THIS TIME.
[2016-10-14 19:50] VITALS: BP 104/74
[2016-10-15 07:48] VITALS: BP 128/68
[2016-10-15] MEDS ORDERED: ONE DAILY MULT1 EAC2 PO (07:54)
[2016-10-15] MEDS ORDERED: HYDROXYZINE HCL50 M1 PO (07:54)
[2016-10-15] MEDS ORDERED: SERTRALINE HCL25 MG PO (07:54)
[2016-10-15] MEDS ORDERED: TRAZODONE HCL100 M1 PO (07:54)
[2016-10-15] MEDS ORDERED: NICOTINE PATCH1 EAC3 TOP (07:54)
[2016-10-15] MEDS ORDERED: VITAMIN B-121000 MC3 PO (07:54)
[2016-10-15] MEDS ORDERED: OXYCODONE HCL5 M1 PO (07:54)
[2016-10-15] MEDS ORDERED: MELATONIN5 M7 PO (07:54)
--- NOTE | 2016-10-15 08:00 | Patient Discharge Instructions ---
Psych Discharge Inst General Discharge Information Reason for Admission: Patient was brought to [facility] Emergency department on 10/03/16 for suicidal ideation and alcohol detox in the context of nonrenewal of pain medications. Psy Discharge Primary Diag+ Unspecified depressive disorder Psy Discharge Secondary Diag+ Alcohol use disorder, severe; R/O Opiate use disorder; Nicotine use disorder; Chronic back pain with implanted stimulator. Summary Tests/Major Procedures N/A Studies Pending at DC: N/A Patient Instructions Contact Information Your Psychiatrist on [facility] was KSENIA GARCIA,LINUS Ma/ ANDRZEJ AMAYA APRN. * If you are experiencing an emergency related to this hospitalization, please call [phone] to contact the treating psychiatrist or the psychiatrist-on- call. * To Request a copy of your medical records, please contact the Medical Records Department at [phone]. * To request results of studies pending at the time of discharge, please call [phone]. * Continue your Medications until directed to stop by your Healthcare provider. General Medication Information Please continue to take your new medications and your continued home medications , unless otherwise indicated on your discharge medication list, or unless directed by your or CLERICAL COORDINATOR to stop them. Special Instructions: DIET: Regular. ACTIVITY LEVEL: As tolerated. Advance Directives Does the Patient have Medical Advance Directives No/Refused further info Does Pt have Psychiatric Advance Directives? No/Refused further info Does Patient have a Designated Surrogate Decision Maker: No Information About Psychiatric Advance Directives Provided? Refused Discharge Plan Post Hospital Treatment Plan: Post Discharge Referrals Provider Referral Service Date: 10/15/16 Referred To: [facility] Notes: [facility] [place], [place] Admission 10/15/16 (t) [phone] Patient was advised that in the event of an emergency to call [phone]/go to the nearest emergency department.
--- NOTE | 2016-10-15 08:05 | CP SOUTH PROGRESS NOTE PSYCH ---
Psych (Inpt) Progress Note Progress Note Include the following elements, when applicable: Involvement in the active treatment of the patient with behavioral observations of the patient and the patient's response to the treatment. Review of the ongoing treatment process in the context of the treatment plan. Indication of how multi-disciplinary staff members are carrying out the treatment plan. Plans for future interventions and recommendations for revision of the treatment plan. Liaison with other physicians/providers. Progress Note: I discussed this patient's progress to date, current mental status, treatment process in the context of the treatment plan, and discharge planning with staff/ team in the daily morning inpatient team meeting. I also met with the patient myself in individual session. Current Medications Sig/Hector Start time Last Medication Dose Route Stop Time Status Admin Acetaminophen 650 MG Q6P PRN 10/04 1100 AC 10/14 PO 0449 Al Hydroxide/Mg 30 ML Q4-6 PRN PRN 10/04 1100 AC Hydroxide PO Benzocaine/Menthol 1 GRZEGORZ Q2P PRN 10/11 1500 AC 10/11 PO 1848 Clonidine 0.05 MG Q6P PRN 10/13 1100 AC PO Cyanocobalamin 1,000 MCG DAILY 10/12 1126 AC 10/14 PO 0827 Gabapentin 100 MG Q8 PRN 10/12 1130 AC PO Hydroxyzine HCl 50 MG Q6PRN PRN 10/13 1100 AC 10/14 PO 1316 Magnesium Hydroxide 30 ML AT BEDTIME PRN 10/04 1100 AC PO Melatonin 5 MG AT BEDTIME 10/14 2200 AC 10/14 PO 2138 Melatonin 3 MG AT BEDTIME 10/12 2200 DC 10/13 PO 2117 Multivitamins 1 TAB DAILY 10/04 1047 AC 10/14 PO 0827 Nicotine 21 MG DAILY 10/06 1726 AC 10/14 TOP 0827 Oxycodone HCl 20 MG 0610/15 0600 AC 10/15 PO 0647 Oxycodone HCl 20 MG 1500 10/07 1500 AC 10/14 PO 1511 Sertraline HCl 100 MG 10/15 0800 CAN PO Sertraline HCl 75 MG 10/15 0800 AC PO Sertraline HCl 25 MG ONE TIME ONE 10/14 1615 DC 10/14 PO 10/14 1616 1708 Sertraline HCl 50 MG ONE TIME ONE 10/14 1600 CAN PO 10/14 1601 Sertraline HCl 50 MG 0800 10/07 1400 DC 10/14 PO 0827 Trazodone HCl 100 MG AT BEDTIME 10/11 2200 AC 10/14 PO 2138 Trazodone HCl 50 MG AT BEDTIME NEED.. 10/11 1730 AC 10/15 PO 0123 Vital Signs Date Time Temp Pulse Resp B/P B/P Pulse O2 O2 Flow FiO2 Mean Ox Delivery Rate 10/15 0748 97.9 86 128/68 10/14 1950 98.7 74 104/74 10/14 1625 74 133/88 10/14 1204 63 109/75 A: Chart, progress notes, labs, vital signs and medication list reviewed. Vital signs within normal limits. No new lab results today. Patient seen at 8:24AM. He presents pleasant and calmer than yesterday. States his sleep was interupted last night due to an incident that occurred involving his roommate. He states he fell back asleep once the situation settled down. Describes his mood as "good." Affect calm, full, non-labile. Makes good eye contact. Speech normal in rate, tone and volume. He seems accepting of aftercare plan to be transferred directly [facility] by his to [facility] in [place]. Identifies needing help for his drinking. He offers no complaints. Rates back pain a 3/10 (10 being the worst); reports pain is tolerable. Rates anxiety a 4/ 10 (10 being the worst). Rates depression a 1/10 (10 being the worst). He denies active and passive suicidal ideation, plans and intent. He states and believes he will not harm himself or others. He identified protective factors including his daughter and . Denies homicidal ideation, auditory and visual hallucinations. Denies paranoid ideation. There is no evidence of delusional or illogical thought content. Reports his appetite is "ok." Reports eating approx. 50% of his breakfast/lunch/dinner yesterday. States he plans to eat breakfast today before discharging. Reports his energy level is fair. He reports tolerating recent increases in Zoloft and Melatonin well, denies untoward effects. He reports feeling safe and ready for discharge. Per Velia Rivas LCSW, she spoke to the patient's Yisel Gutierrez about removing the BB gun from their home. Yisel agreed to remove gun. Please see Velia Rivas's note for additional information. P: -discharge today at 10:30AM into the care of his who will transport him directly to [facility] in [place] for admission today. -patient advised to abstain from all substances, attend AA meetings and obtain a sponsor for support in sobriety. -patient was advised that in the event of an emergency to call [phone]/go to the nearest emergency department. Patient verbalized understanding of instructions.
--- NOTE | 2016-10-15 08:46 | NUR ---
PT SCHEDULED FOR DISCHARGE TODAY AT 1030AM, REPORTED ALREADY MET WITH PROVIDER AND FEELS SAFE AND READY FOR DISCHARGE. REPORTS AN OVERALL IMPROVEMENT IN MOOD, BEHAVIOR, DEPRESSION, APPETITE AND SLEEP, SOCIAL AND APPROPRIATE WITH PEERS AND STAFF. WHEN ASKED DIRECTLY DENIES SI/HI/HALLUCINATIONS AND NO EVIDENCE OF. PT INDFORMATION PACKETS RE: DEPRESSION AND SI GIVEN AND PT RESOURCE GUIDE REVIEWED AND HAS A + UNDERSTANDING OF MEDICATION REGIMENT AND IS FUTURE ORIENTED/MOTIVATED; ALSO HAS A + UNDERSTANDING OF DISCHARGE FOLLOW-UP.
--- NOTE | 2016-10-15 08:46 | SOCIAL WORKER PROG NOTE PSYCH ---
Social Work Progress Note Progress Note Left clinical update yesterday with Prachi from [facility] ext. [phone]. Momo reported not sleeping well again last night. Stated there was some disruption in his room due to an issue with his roommate. Didn't want to eat breakfast this morning. Encouraged him to eat something before his trip to [place]. He said he would eat something later. Asked if he needed to do a phone screening with the rehab? I told him it didn't appear so, as they told me they received alot of information from his . Asked if he would like to see pictures of the rehab on the computer? He said that was ok.
--- NOTE | 2016-10-15 08:47 | DISCHARGE SUMMARY REPORT-PSYCH ---
Visit Information Visit Dates/Diagnosis' Admission Date: 10/04/16 Discharge Date: 10/15/16 Reason for Admission: Patient was brought to [facility] Emergency Department on 10/03/16 for suicidal ideation and alcohol detox in the context of nonrenewal of pain medications. Psy Discharge Primary Diag: Unspecified depressive disorder Psy Discharge Secondary Diag: Alcohol use disorder, severe; R/O Opiate use disorder; Nicotine use disorder; Chronic back pain with implanted stimulator. Hospital Course Significant Lab Findings: Lab Absolute Lymphocytes 1.1 /CUMM L 10/03/16 1536 Gran % 77.3 % H 10/03/16 1536 Lymphocytes % 14.4 % L 10/03/16 1536 MCH 32.2 PG H 10/03/16 1536 MCV 97.0 FL H 10/03/16 1536 MPV 7.1 FL L 10/03/16 1536 RDW 14.7 % H 10/03/16 1536 Serum Alcohol 179.0 MG/DL 10/03/16 1536 U Benzodiazepines Scrn > 800 NG/ML H 10/03/16 1511 Urine Opiates Screen 874.00 NG/ML 10/03/16 1511 Course Complications: None. Consultations: The patient was seen for admission history and physical by inspector motor vehicles Dr. Odalys Ibrahim. Please see MD note for additional information. Allergies: Coded Allergies: NO KNOWN ALLERGIES (11/04/11) Hospital Course/TX Response: The patient was monitored on the unit for safety, mood, suicidal ideation and alcohol withdrawal. He participated in multimodal treatments on the unit. He was monitored on [facility] protocol for alcohol withdrawal and completed an Ativan taper. He did not exhibit any complications. Zoloft 50mg daily was started for anxiety/ depression and increased to 75mg daily. Trazodone 50mg at bedtime was started for insomnia and increased to 100mg at bedtime. Melatonin 3mg was increased to 5mg at bedtime for insomnia. Atarax 50mg Q6H PRN was started for anxiety. During the patient's inpatient treatment, his pain specialist, Dr. Bryant Florez, was contacted (with the patient's permission) to disclose his over use of prescription opiate medications and concomitant alcohol use. Dr. Florez advised that the patient be tapered off of opiate medications. This process was started. Oxycontin CR 20mg Q12 hours was tapered off. Oxycodone 20mg BID was continued. The patient was made aware that his Oxycodone would continue being tapered down to off post-discharge, which he was agreeable to. He reported tolerating medications well and denied side effects. During the hospital course, the patient's mood and affect improved. Suicidal ideation remitted. A family meeting was held with the patient, his , Velia Fishman LCSW, and Devika. The patient's substance abuse/psychiatric history, treatment progress, level of safety and discharge planning were reviewed and discussed. The patient's felt strongly about the patient not immediately returning home from the hospital. Her primary concern was his substance abuse and relapsing if he returned home. She stated that both his pain and substance abuse needed to be addressed and treated first before she would allow him back home. We discussed possible after care treatment options, including inpatient substance abuse rehabs. She advocated that the patient go directly from the hospital to the [facility] in [place], [place] for respite. Contact was made with the [facility] in [place], [place] who stated that the patient did not meet criteria for their services. The patient and his eventually agreed for the patient to transfer directly from hospital to a residential rehab, which was the recommendation of the inpatient psychiatry treatment team. The patient was accepted to [facility] in [place]. Both the patient and his were in favor of discharge plan. Velia Rivas LCSW, also spoke to the patient's about removing a BB gun that the patient had reported was in their home. Yisel agreed to remove BB gun, and expressed no safety concerns regarding the patient's discharge to residential rehab. On the date of discharge, 10/15/16, the patient presents pleasant and calmer than yesterday. States his sleep was interupted last night due to an incident that occurred involving his roommate. He states he fell back asleep once the situation settled down. Describes his mood as "good." Affect calm, full, non- labile. Makes good eye contact. Speech normal in rate, tone and volume. He seems accepting of aftercare plan to be transferred directly from [facility] by his to [facility] in [place]. Identifies needing help for his drinking. He offers no complaints. Rates back pain a 3/10 (10 being the worst); reports pain is tolerable. Rates anxiety a 4/10 (10 being the worst). Rates depression a 1/10 ( 10 being the worst). He denies active and passive suicidal ideation, plans and intent. He states and believes he will not harm himself or others. He identified protective factors including his daughter and . Denies homicidal ideation, auditory and visual hallucinations. Denies paranoid ideation. There is no evidence of delusional or illogical thought content. Thought process linear, goal directed. Reports his appetite is "ok." Reports eating approx. 50% of his breakfast/lunch/dinner yesterday. States he plans to eat breakfast today before discharging. Reports his energy level is fair. He reports tolerating recent increases in Zoloft and Melatonin well, denies untoward effects. He reports feeling safe and ready for discharge. Discharge HBIPS - Tobacco Use Treatment Offered Post DC Medications Offered: Refused Tob Medication Tx Post DC Tobacco Treatment Plan: Refused Tobacco Tx Pgm - EtOH/Drug Use D/O Treatment Offered Post DC Medications Offered: Ref Med EtOH/Drug Use D/O Post DC EtOH/SubAbuse TX Plan: Other SubAbuse/Dual Pgm Program Appt Date: 10/15/16 Metabolic Screening - Screen if on a Neuroleptic Medication - Metabolic screening should include: - Blood Pressure, BMI, Glucose or Hgb A1c, & a - Lipid profile from within the past 365 days. Metabolic Screening ([X]) Not Applicable, patient not on a neuroleptic. OR () Patient on a neuroleptic(s) . Enter below results for Glucose or Hemoglobin A1C, and lipid panel if obtained during the last 365 days. BMI: 22.600 Blood Pressure: 128/68 Laboratory Results (If applicable): n/a Discharge Instructions General Discharge Information Discharge Medications: Discharge Medications- (Dose, route, freq, indication): START taking these NEW Home Medications: Nicotine (Nicotine Dose: On the skin, DAILY for Patch) 21 MG/24 HOUR 21 Milligram smoking cessation PATCH.TD24 Apply 1 patch topically QAM to upper arm and remove before HS. Last Taken: 10/15/16 Time: 0800 Oxycodone HCl Dose: ORAL, 0600,1500 for (Oxycodone HCl) 5 MG 20 Milligram chronic pain TABLET Take 1 tab po BID at 0600 and 1500. Last Taken: 10/15/16 Time: 0647 Sertraline HCl Dose: ORAL, Every Morning for (Sertraline HCl) 25 75 Milligram depression/anxiety MG TABLET Take 3 tabs (75mg) po QAM. Last Taken: 10/15/16 Time: 0800 Trazodone HCl Dose: ORAL, AT BEDTIME for (Trazodone HCl) 100 100 Milligram insomnia MG TABLET Take 1 tab po QHS. Last Taken: 10/14/16 Time: 2100 Hydroxyzine HCl Dose: ORAL, EVERY 6 HOURS (Hydroxyzine HCl) 50 50 Milligram NEEDED as needed for MG TABLET ANXIETY Take 1 tab po every 6 hours as needed for anxiety. NTE 3 doses/24 hours. Last Taken: 10/14/16 Time: 1300 Cyanocobalamin Dose: ORAL, DAILY for vitamin (Vitamin B-12) 1,000 1,000 support MCG TABLET Microgram Take 1 tab po daily. Last Taken: 10/15/16 Time: 0800 Multivitamin (One Dose: ORAL, DAILY for vitamin Daily Multivitamin) 1 Tablet support 1 EACH TABLET Take 1 tab po daily. Last Taken: 10/15/16 Time: 0800 Melatonin Dose: ORAL, AT BEDTIME for (Melatonin) 5 MG 5 Milligram sleep induction/insomnia TABLET Take 1 tab po QHS. Last Taken: 10/14/16 Time: 2100 STOP taking these DISCONTINUED Home Medications: Diazepam (Valium) 10 MG TABLET Dose: ORAL, TWICE DAILY for ANXIETY 1 Tablet Reason Stopped: Per Doctor Decision Oxycodone HCl (Oxycodone HCl) Dose: ORAL, EVERY 4 HOURS NEEDED as 20 MG TABLET 1 Tablet needed for PAIN Reason Stopped: Changed Dose No prescriptions were issued on discharge. Per [facility] staff, Loc Anderson, patient's discharge medications would be continued on arrival to facility and his pain medications would continue being tapered. Multiple Neuroleptics: ([X]) Not Applicable OR Document below three failed attempts at monotherapy, or a plan to taper to monotherapy, or augmentation of Clozapine. () Patient's Diet: Regular. Patient's Activity: As tolerated. DC Disposition: Patient was transfered directly from hospital by his to [facility] in [place]. Recommendations: The patient was advised to please take his medications as prescribed. He was advised and strongly encouraged to complete residential rehab program and follow up with their recommended aftercare treatment plan. He was advised to abstain from all substances, attend daily to weekly AA/NA meetings, and obtain a sponsor for support in sobriety. He was advised that in the event of an emergency to call [phone]/go to the nearest emergency department. The patient verbalized understanding of all instructions. Referred To: Referred To: [facility] Notes: [place], [place] Admission date: 10/15/16 (t) [phone] Copies To: Dr. Bryant Florez; [facility]
== END 2016-10-15 10:46 | DRG 881 ==
LOC: ERH 14:37 → ERHI 10-04 10:45 → CP SOUTH 10-04 10:45 → ENRESERV 10-04 14:00 → ENTRNSPT 10-04 14:35 → CMPTRNSPT 10-04 15:30 → ENTRNSPT 10-04 16:13 → CP SOUTH 10-04 16:28 → CMPTRNSPT 10-04 17:34 → CP SOUTH 10-07 08:17
PROVIDERS: Physician Assistant Medical; ADMIT Psychiatry & Neurology Psychiatry
DX: F32.9 Major depressive disorder, single episode, unspecified (principal); F10.20 Alcohol dependence, uncomplicated
CPT/HCPCS: 80307; G0463; G0480; J3490